=== PATIENT | female | born 1990 | race Caucasian/White ===

== ENCOUNTER 2019-06-28 20:49 | Inpatient (IN) ==
[2019-06-28 21:42] LABS: Appearance Urine Clear (Clear); Bacteria Urine Automated 2+ (Negative); Bilirubin Urine Negative (Negative); Blood Urine Trace (Negative); Color Urine Yellow; Epithelial Cell Urine Auto >30 /lpf (0-5); Glucose Urine UA Negative (Negative); Ketones Urine Trace (Negative); Leukocyte Esterase Urine Negative (Negative); Nitrite Urine Negative (Negative); Protein Urine Negative (Negative); RBC Urine Automated 0-4 /hpf (0-4); Specific Gravity Urine 1.023 (1.000-1.030); Urobilinogen Urine Negative (Negative); pH Urine 5.5 (4.5-7.5)
[2019-06-28 22:01] LABS: Amphetamines+Metham, Urine Neg (Neg); Barbiturates, Urine Neg (Neg); Benzodiazepine, Urine Neg (Neg); Cocaine, Urine Neg (Neg); MDMA (Ecstacy), Urine Neg (Neg); Methadone, Urine Neg (Neg); Opiate, Urine Neg (Neg); Phencyclidine, Urine Neg (Neg)
[2019-06-28 22:14] LABS: Basophils # (auto) 0.05 K/uL (0-0.2); Basophils % (auto) 0.8 %; Eosinophils # (auto) 0.13 K/uL (0-0.5); Immature Granulocytes # (auto) 0.01 K/uL (0.00-0.02); Immature Granulocytes % (auto) 0.2 %; Lymphocytes # (auto) 1.59 K/uL (1.2-3.4); Lymphocytes % (auto) 24.9 %; Mean Corpuscular Hemoglobin 30.7 pg (25-34); Mean Corpuscular Hgb Conc 33.3 g/dL (32-36); Mean Platelet Volume 10.8 fL (7.4-10.4); Monocytes # (auto) 0.49 K/uL (0.11-0.59); Monocytes % (auto) 7.7 %; Neutrophils # (auto) 4.12 K/uL (1.4-6.5); Neutrophils % (auto) 64.4 %; Platelet Count 257 K/uL (130-400); RDW Coefficient of Variation 13.2 % (11.5-14.5); RDW Standard Deviation 43.7 fL (36.4-46.3); Red Blood Count 4.24 M/uL (4.2-5.4); White Blood Count 6.39 K/uL (4.8-10.8)
[2019-06-28 22:44] LABS: Albumin Level 3.3 gm/dl (3.4-5.0); BUN Creatinine Ratio 11.1 (10-20); Calcium 8.3 mg/dl (8.5-10.1); Creatinine Clr Calc Pharmacy 102.8 ml/min; Est GFR (African American) 97.5; Est GFR (Non-African American) 84.1; Potassium 3.8 mmol/L (3.5-5.1)
[2019-06-28 22:46] LABS: Acetaminophen < 2 ug/ml (10-30); Salicylate < 1.7 mg/dl (2.8-20)
[2019-06-28 22:55] LABS: Albumin Globulin Ratio 0.9 (0.9-2); Bilirubin,Total 0.2 mg/dl (0.2-1); Globulin 3.7 gm/dl (2.5-4.0); Thyroid Stimulating Hormone 2.13 uIu/ml (0.300-4.500)
--- NOTE | 2019-06-28 23:46 | Emergency Department Note ---
History of Present Illness General Chief complaint: Mental Health Evaluation Stated complaint: NERVOUS BREAKDOWN, MENTAL HEALTH EVAL Source: patient Mode of arrival: ambulatory Limitations: clinical acuity (fragmented speech, thought d/o) History of Present Illness Provider complaint: Mind fragmented, nervous breakdown Onset (ago): day(s) 7 This patient is a 28-year-old female who presents the emergency department with complaints of a nervous breakdown. The patient states her mind is fragmented and she is not "living in reality." Patient states that she has a history of mental health issues and has had at least 3 inpatient evaluations between [facility] and [place]. Patient does have a psychiatrist that she thinks is "a joke." Patient states she is currently taking Paxil and Ativan but is not able to describe her compliance. 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 Patient denies any significant substance use. She states she was "driving through" and stopped at her aunt and uncle's house in our area. They brought her to the emergency department due to her complaints. Patient denies any clear suicidality but states she is "getting there." She denies any recent illness, fever, cough, chest pain or shortness of breath. Home Medications Home Medications Medication Instructions Recorded Confirmed Type lorazepam [Ativan] 1 mg PO TID PRN 06/28/19 06/28/19 History paroxetine HCl [Paxil] 20 mg PO DAILY 06/28/19 06/28/19 History Allergies Allergy/AdvReac Type Severity Reaction Status Date / Time amoxicillin [From Augmentin] AdvReac Nausea Verified 06/28/19 21:17 clavulanic acid AdvReac Nausea Verified 06/28/19 21:17 [From Augmentin] sumatriptan [From Imitrex] AdvReac Agitated Verified 06/28/19 21:17 Past Med/Surg History Medical History Mental health disorder Social History Preferred Language: Malay Feels Safe at Home: Yes Smoking Status: Current every day smoker Tobacco Type: cigarettes ; Review of Systems See HPI for pertinent positives & negatives. and A total of 10 systems reviewed and were otherwise negative Physical Exam Vital Signs Vital Signs - 24 hr 06/28/19 20:51 06/28/19 23:36 Temperature 36.9 C Temperature Source Oral Pulse Rate 86 Pulse Rate [Left Finger] 60 Pulse Rhythm [Left Finger] Regular Pulse Strength [Left Finger] Normal Respiratory Rate 18 16 Respiratory Effort / Characteristics Non-Labored Non-Labored Respiratory Depth Normal Normal Respiratory Pattern Regular Blood Pressure 158/97 H Blood Pressure [Left Arm] 112/73 Blood Pressure Mean 117 Blood Pressure Mean [Left Arm] 86 Blood Pressure Position [Left Arm] Sitting Pulse Oximetry 100 100 Oxygen Delivery Method Room Air Room Air Sepsis Recent Fever Within 48 Hours No Sepsis Action Taken by Nursing No Action Required Vital signs reviewed. General: Well-appearing 28 yo female, in no significant distress. Anxious and periodically tearful HEENT: No scleral icterus, PERRLA, neck supple. Atraumatic. Cardiovascular: Regular rate and rhythm, no extra sounds. Pulmonary: Clear to auscultation bilaterally, normal work of breathing. Abdomen: Soft, nontender, nondistended, positive bowel sounds. Musculoskeletal: Atraumatic, no peripheral edema. Neurologic: Patient awake alert and oriented x 3 Psych: Questionable suicidality, negative homicidal thoughts. Difficulty completing a sentence Skin: Warm, dry, no rash Medical Decision Making Differential Diagnosis Differential diagnosis: Etiologies such as psychiatric disorder, infection, hypoglycemia, electrolyte abnormalities, cardiac sources, intracerebral event, toxicological process, neurologic disorder, as well as others were entertained. Home Medications Current Medication List: was personally reviewed by me Laboratory Data Attestation: I reviewed the patient's lab results. Result diagrams: 06/28/19 21:54 06/28/19 21:54 Lab Results 06/28/19 06/28/19 06/28/19 Range/Units 21:05 21:05 21:05 WBC (4.8-10.8) K/uL RBC (4.2-5.4) M/uL Hgb (12.0-16.0) g/dL Hct (37-47) % MCV (80-100) fL MCH (25-34) pg MCHC (32-36) g/dL RDW Std Deviation (36.4-46.3) fL RDW Coeff of Shawn (11.5-14.5) % Plt Count (130-400) K/uL MPV (7.4-10.4) fL Immature Gran % (Auto) % Neut % (Auto) % Lymph % (Auto) % [place] % (Auto) % Eos % (Auto) % Baso % (Auto) % Immature Gran # (Auto) (0.00-0.02) K/uL Neut # (Auto) (1.4-6.5) K/uL Lymph # (Auto) (1.2-3.4) K/uL [place] # (Auto) (0.11-0.59) K/uL Eos # (Auto) (0-0.5) K/uL Baso # (Auto) (0-0.2) K/uL Sodium (136-145) mmol/L Potassium (3.5-5.1) mmol/L Chloride (98-107) mmol/L Carbon Dioxide (21-32) mmol/L Anion Gap (3-11) BUN (7-18) mg/dl Creatinine (0.6-1.2) mg/dl Est Cr Clr Drug Dosing ml/min Est GFR ( Amer) Est GFR (Non-Af Amer) BUN/Creatinine Ratio (10-20) Glucose (70-99) mg/dl Calcium (8.5-10.1) mg/dl Total Bilirubin (0.2-1) mg/dl AST (15-37) U/L ALT (12-78) U/L Alkaline Phosphatase (45-117) U/L Total Protein (6.4-8.2) gm/dl Albumin (3.4-5.0) gm/dl Globulin (2.5-4.0) gm/dl Albumin/Globulin Ratio (0.9-2) TSH (0.300-4.500) uIu/ml Urine Color Yellow Urine Appearance Clear (Clear) Urine pH 5.5 (4.5-7.5) Ur Specific [place] 1.023 (1.000-1.030) Urine Protein Negative (Negative) Urine Glucose (UA) Negative (Negative) Urine Ketones Trace H (Negative) Urine Blood Trace H (Negative) Urine Nitrite Negative (Negative) Urine Bilirubin Negative (Negative) Urine Urobilinogen Negative (Negative) Ur Leukocyte Esterase Negative (Negative) Urine WBC (Auto) 10-30 H (0-5) /hpf Urine RBC (Auto) 0-4 (0-4) /hpf U Hyaline Cast (Auto) 5-10 H (0-5) /lpf U Epithel Cells (Auto) >30 H (0-5) /lpf Urine Bacteria (Auto) 2+ H (Negative) POC Ur Test NEG (NEG) Salicylates (2.8-20) mg/dl Urine Opiates Screen Neg (Neg) Ur Methadone, Qual Neg (Neg) Acetaminophen (10-30) ug/ml Urine Barbiturates Neg (Neg) Ur Phencyclidine (PCP) Neg (Neg) U Amphetamin/Meth Scrn Neg (Neg) MDMA (Ecstasy) Screen Neg (Neg) U Benzodiazepines Scrn Neg (Neg) Ur Cocaine Metabolite Neg (Neg) U Marijuana (THC) Screen Neg (Neg) Ethyl Alcohol mg/dL (0-3) mg/dl 06/28/19 06/28/19 06/28/19 Range/Units 21:54 21:54 21:54 WBC 6.39 (4.8-10.8) K/uL RBC 4.24 (4.2-5.4) M/uL Hgb 13.0 (12.0-16.0) g/dL Hct 39.0 (37-47) % MCV 92.0 (80-100) fL MCH 30.7 (25-34) pg MCHC 33.3 (32-36) g/dL RDW Std Deviation 43.7 (36.4-46.3) fL RDW Coeff of Shawn 13.2 (11.5-14.5) % Plt Count 257 (130-400) K/uL MPV 10.8 H (7.4-10.4) fL Immature Gran % (Auto) 0.2 % Neut % (Auto) 64.4 % Lymph % (Auto) 24.9 % [place] % (Auto) 7.7 % Eos % (Auto) 2.0 % Baso % (Auto) 0.8 % Immature Gran # (Auto) 0.01 (0.00-0.02) K/uL Neut # (Auto) 4.12 (1.4-6.5) K/uL Lymph # (Auto) 1.59 (1.2-3.4) K/uL [place] # (Auto) 0.49 (0.11-0.59) K/uL Eos # (Auto) 0.13 (0-0.5) K/uL Baso # (Auto) 0.05 (0-0.2) K/uL Sodium 142 (136-145) mmol/L Potassium 3.8 (3.5-5.1) mmol/L Chloride 111 H (98-107) mmol/L Carbon Dioxide 28 (21-32) mmol/L Anion Gap 4.0 (3-11) BUN 10 (7-18) mg/dl Creatinine 0.92 (0.6-1.2) mg/dl Est Cr Clr Drug Dosing 102.8 ml/min Est GFR ( Amer) 97.5 Est GFR (Non-Af Amer) 84.1 BUN/Creatinine Ratio 11.1 (10-20) Glucose 87 (70-99) mg/dl Calcium 8.3 L (8.5-10.1) mg/dl Total Bilirubin 0.2 (0.2-1) mg/dl AST 10 L (15-37) U/L ALT 14 (12-78) U/L Alkaline Phosphatase 68 (45-117) U/L Total Protein 7.0 (6.4-8.2) gm/dl Albumin 3.3 L (3.4-5.0) gm/dl Globulin 3.7 (2.5-4.0) gm/dl Albumin/Globulin Ratio 0.9 (0.9-2) TSH 2.130 (0.300-4.500) uIu/ml Urine Color Urine Appearance (Clear) Urine pH (4.5-7.5) Ur Specific [place] (1.000-1.030) Urine Protein (Negative) Urine Glucose (UA) (Negative) Urine Ketones (Negative) Urine Blood (Negative) Urine Nitrite (Negative) Urine Bilirubin (Negative) Urine Urobilinogen (Negative) Ur Leukocyte Esterase (Negative) Urine WBC (Auto) (0-5) /hpf Urine RBC (Auto) (0-4) /hpf U Hyaline Cast (Auto) (0-5) /lpf U Epithel Cells (Auto) (0-5) /lpf Urine Bacteria (Auto) (Negative) POC Ur Test (NEG) Salicylates < 1.7 L (2.8-20) mg/dl Urine Opiates Screen (Neg) Ur Methadone, Qual (Neg) Acetaminophen < 2 L (10-30) ug/ml Urine Barbiturates (Neg) Ur Phencyclidine (PCP) (Neg) U Amphetamin/Meth Scrn (Neg) MDMA (Ecstasy) Screen (Neg) U Benzodiazepines Scrn (Neg) Ur Cocaine Metabolite (Neg) U Marijuana (THC) Screen (Neg) Ethyl Alcohol mg/dL (0-3) mg/dl 06/28/19 Range/Units 21:54 WBC (4.8-10.8) K/uL RBC (4.2-5.4) M/uL Hgb (12.0-16.0) g/dL Hct (37-47) % MCV (80-100) fL MCH (25-34) pg MCHC (32-36) g/dL RDW Std Deviation (36.4-46.3) fL RDW Coeff of Shawn (11.5-14.5) % Plt Count (130-400) K/uL MPV (7.4-10.4) fL Immature Gran % (Auto) % Neut % (Auto) % Lymph % (Auto) % [place] % (Auto) % Eos % (Auto) % Baso % (Auto) % Immature Gran # (Auto) (0.00-0.02) K/uL Neut # (Auto) (1.4-6.5) K/uL Lymph # (Auto) (1.2-3.4) K/uL [place] # (Auto) (0.11-0.59) K/uL Eos # (Auto) (0-0.5) K/uL Baso # (Auto) (0-0.2) K/uL Sodium (136-145) mmol/L Potassium (3.5-5.1) mmol/L Chloride (98-107) mmol/L Carbon Dioxide (21-32) mmol/L Anion Gap (3-11) BUN (7-18) mg/dl Creatinine (0.6-1.2) mg/dl Est Cr Clr Drug Dosing ml/min Est GFR ( Amer) Est GFR (Non-Af Amer) BUN/Creatinine Ratio (10-20) Glucose (70-99) mg/dl Calcium (8.5-10.1) mg/dl Total Bilirubin (0.2-1) mg/dl AST (15-37) U/L ALT (12-78) U/L Alkaline Phosphatase (45-117) U/L Total Protein (6.4-8.2) gm/dl Albumin (3.4-5.0) gm/dl Globulin (2.5-4.0) gm/dl Albumin/Globulin Ratio (0.9-2) TSH (0.300-4.500) uIu/ml Urine Color Urine Appearance (Clear) Urine pH (4.5-7.5) Ur Specific [place] (1.000-1.030) Urine Protein (Negative) Urine Glucose (UA) (Negative) Urine Ketones (Negative) Urine Blood (Negative) Urine Nitrite (Negative) Urine Bilirubin (Negative) Urine Urobilinogen (Negative) Ur Leukocyte Esterase (Negative) Urine WBC (Auto) (0-5) /hpf Urine RBC (Auto) (0-4) /hpf U Hyaline Cast (Auto) (0-5) /lpf U Epithel Cells (Auto) (0-5) /lpf Urine Bacteria (Auto) (Negative) POC Ur Test (NEG) Salicylates (2.8-20) mg/dl Urine Opiates Screen (Neg) Ur Methadone, Qual (Neg) Acetaminophen (10-30) ug/ml Urine Barbiturates (Neg) Ur Phencyclidine (PCP) (Neg) U Amphetamin/Meth Scrn (Neg) MDMA (Ecstasy) Screen (Neg) U Benzodiazepines Scrn (Neg) Ur Cocaine Metabolite (Neg) U Marijuana (THC) Screen (Neg) Ethyl Alcohol mg/dL < 3.0 (0-3) mg/dl Blood Pressure Blood Pressure Findings: Normal blood pressure Blood Pressure Disposition: did not require urgent referral MDM Narrative This patient was evaluated and appeared to be in no significant distress. Patient was evaluated and appeared to be in no significant distress. Patient was medically cleared and evaluated by the mental health wrapper caser. Patient admitted to suicidal thoughts with a plan to the wrapper caser. She continues with her difficulty completing a sentence and having fragmented thinking. The patient was referred to [facility] for inpatient mental health treatment. Patient has been accepted on a voluntary basis. Impression & Plan Mental health disorder, Suicidal ideation Discharge Plan Visit Data Chief Complaint: Mental Health Evaluation Stated Complaint: NERVOUS BREAKDOWN, MENTAL HEALTH EVAL ED Provider: Shey Plasencia Discharge Problem: Mental health disorder, Suicidal ideation Forms Stand Alone Forms: My [facility], Suicide Prevention Resources Prescriptions Prescriptions: No Action paroxetine HCl [Paxil] 20 mg Tablet 20 mg PO DAILY RF: 0 lorazepam [Ativan] 1 mg Tablet 1 mg PO TID PRN (Reason: Anxiety) RF: 0
[2019-06-29] MEDS ORDERED: ALUMINUM/MAGNESIUM SUSP 30 ML UDC PO PRN (00:53)
[2019-06-29] MEDS ORDERED: BISMUTH SUBSALICYLATE PER ML OMNICELL CHARGE PO PRN (00:53)
[2019-06-29] MEDS ORDERED: MAGNESIUM HYDROXIDE SUSP 30 ML UDC PO PRN (00:53)
[2019-06-29] MEDS ORDERED: ACETAMINOPHEN 325 MG TAB PO PRN (00:53)
[2019-06-29] MEDS ORDERED: SODIUM CHLORIDE 0.65% NA SOLN 45 ML (OCEAN) PRN (00:53)
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
[2019-06-29] MEDS ORDERED: NICOTINE POLACRILEX 2 MG GUM MT PRN (12:25)
[2019-06-29] MEDS ORDERED: PARoxetine HCL 20 MG TAB PO SCH (12:30)
[2019-06-29] MEDS: LORazepam 1 MG TAB PO PRN ×2 (13:07→19:32)
[2019-06-29] MEDS: PARoxetine HCL 10 MG TAB PO SCH (14:02)
[2019-06-29] MEDS: NICOTINE 21 MG/24 HR TDSY TD SCH (14:02)
[2019-06-30] MEDS: NICOTINE 21 MG/24 HR TDSY TD SCH (09:07)
[2019-06-30] MEDS: PARoxetine HCL 10 MG TAB PO SCH (09:11)
[2019-06-30] MEDS: LORazepam 1 MG TAB PO PRN ×2 (09:16→20:07)
--- NOTE | 2019-06-30 12:34 | Psychiatric Progress Note ---
Date of Service June 30, 2019 Impression / Recommendations Impression 28-year-old single female with a history of depression and anxiety who presented with her aunt and uncle requesting inpatient treatment for worsening symptoms and suicidal ideation with thoughts to overdose or use a gun to end her life. She agreed to voluntary treatment, but states that shortly afterwards, she received a phone call informing her that her boyfriend in [place] of a heart attack. Assessment has been challenging due to limited engagement, vague and evasive answers, and her expressed wish for a rapid discharge, fearing that she will miss any potential services (although indicates none are scheduled yet). Collateral information from family would be helpful, as there are some inconsistencies in her reports, but she would not allow us to talk to her and who brought her here. She did agree to a family meeting with her mother which is scheduled for today. We also been able to get some information from her previous therapist, which indicates some concerning behaviors with poor interpersonal boundaries, borderline traits, and possibly a primary thought disorder. I have again stressed our focus on addressing safety issues first before discharging her, and paroxetine was increased to 40 mg daily on admission to target depressive and anxiety symptoms. We are also exploring options for therapy, but her previous therapist is unwilling to work with her again. Inpatient treatment is medically necessary due to the severity of symptoms and risk for suicide if discharged. (1) Depression: 06/28 -patient reports worsening mood for the past couple of weeks in the context of working long hours and interpersonal stressors. She is recently been switched back to paroxetine, which was previously effective, and agreed to titrate the dose to 30 mg daily. -Get collateral information from family, and schedule a discharge planning meeting with her mother and/or aunt. -Clarify access to guns with family. -Coordinate care with [facility], ensure psychiatric follow-up, and recommend individual psychotherapy. -Encourage patient to attend to participate in groups and therapy, work on healthy coping skills and discharge safety plan. 06/29 -continue paroxetine 30 mg daily. -Obtain collateral information from family and previous therapist. -Patient denies access to guns. It would be helpful to involve her family and discharge and safety planning. -Patient is submitted a 72-hour notice requesting to withdrawal from treatment, but cannot safely discharge her as she remains suicidal and none of her risk factors have been mitigated -Broad differential, including depression and anxiety, schizoaffective disorder, borderline personality disorder, PTSD, substance abuse. Patient states she has been having debilitating symptoms for 4 years, we do not have access to any of her previous records, hospitalizations, or medical work-ups. Advised her that there will not be a quick fix in terms of a medication that will fix her symptoms immediately, and that she should continue to work with an outpatient psychiatrist and therapist for the best long-term results. (2) Anxiety: 06/28 -increased paroxetine as above; continue lorazepam as needed. Risk Factors Assessment Male: No : Yes Do You Have Access To A Gun?: No Health Problems: No Mental Health Diagnoses: Yes Substance Use Disorders: No Previous Attempt: No Previous Psychiatric Hospitalization: Yes Smoker: Yes Protective Factors Assessment : No Responsible for Young Children: No Employed: Yes ([employer]) Stable Relationships: No Supportive Family: Yes Good Rapport with Provider: No Interval History Identifying Information BARRY CALDERA is a 28-year-old F who currently lives in [place] with her stepfather, has a history of depression and anxiety, and was admitted on 06/28/19 23:53 on a 201 voluntary commitment for suicidal ideation with multiple plans (overdose and shooting herself). Chief Complaint " The same". Review of Systems Sleep Information Total Hours of Sleep: 6.75 Sleep Comments: admitted at 0041. Vistaril given due to anxiety and insomnia. Meal Information Percent Meal Consumed - Breakfast: 100 Percent Meal Consumed - Lunch: 60 Percent Meal Consumed - Dinner: 25 Subjective Subjective Patient was seen & assessed and interval progress reviewed with treatment team. Staff reports she has refused all groups, spends most of her time in her room, and has been frequently tearful and distraught. She submitted a 72-hour notice requesting to withdrawal from treatment, stating she wanted to ensure she was out of the hospital in time to go to her boyfriend's in [place], and requested and received multiple doses of Ativan for anxiety. 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 She denies any acute stressors at the time. At that time, she moved back in with her mother and stepfather, and has never been able to move back out and live independently. She also reports problems in her interpersonal relationships and friendships for the past 4 years, which she is vague about. She states that 4 years ago, she felt "like reality split, I feel split, like 2 people." She says she has been told she has borderline personality disorder more complex PTSD by different therapists. She describes chronic cloudy thoughts, stating she cannot focus, and has a constant sense of derealization. "My head is making me feel bad. I'm not thinking it, it's like the thoughts are just there. It's making my whole body feel bad." She says "reality was ripped from me, I have not been grounded in 3 to 4 years." She describes feeling like there is a "pain in my head that goes from the front to the back," and that she is "collapsing in on myself even when I am standing up." She is aware that there are are no actual physical abnormalities, and wants to know if there is a medication that can fix all of this. Reflected that she submitted a 72-hour notice requesting to leave treatment, and that given the length of time that her symptoms have been going on, this is going to take some time to address. She reports having a brain MRI sometime in the past year, which was normal. She endorses hopelessness and ongoing suicidal thoughts. She denies a history of suicide attempts and denies access to guns. She had previously reported that her mother told her she would come and get her and take her to [place], but when her mother talked to the psychosocial rehabilitation counselor she stated that she cannot leave [place]. She states that she would like to go back to see her previous therapist in [place], but that this individual terminated care and she is unsure why. Social work contacted her previous therapist who reported that the patient had poor boundaries, fabricated information, and that diagnosis was unclear. She initially started treatment for symptoms of anxiety, but also noted borderline traits, and at times was so disorganized that she questioned a primary thought disorder such as schizoaffective. Physical Exam Psychiatric Orientation: alert and cooperative Apperance: appropriately dressed, + disheveled and appeared stated age Mildly disheveled and unkempt. Lying in bed in no acute distress Eye Contact: + fair eye contact Motor Behavior: no abnormal motor movements Long pauses at times prior to answering certain questions, closing her eyes and appears to be thinking before responding. Affect: + depressed affect, + tearful affect and mood congruent with affect Mood: + depressed mood and + anxious mood "The same." Thought Process: + thought process not clear or coherent Thought Content: + cognitive distortions, + derealization, + thought insertion, + hopelessness and + loneliness Often gives vague answers, inconsistent reports. Suicidal Thoughts: + reports suicidal thoughts Homicidal Thoughts: denies homicidal thoughts Hallucinations: no auditory hallucinations and no visual hallucinations Cognition: attention grossly intact and language grossly intact; + recent memory not intact and + remote memory not intact Insight: + impaired insight Judgement: + impaired judgement Vital Signs (Past 24 Hours) Last Vital Signs Temp 36.6 C 06/30/19 06:42 Pulse 94 H 06/30/19 06:44 Resp 16 06/30/19 06:42 BP 131/81 06/30/19 06:44 Pulse Ox 99 06/29/19 01:16 Results & Data ([facility]) Current Inpatient Medications Current Inpatient Medications: Current Inpatient Medications Acetaminophen (Tylenol) 650 mg PO Q4H PRN PRN Reason: Headache or Minor Fever Stop: 07/29/19 00:52 Al Hydrox/Mg Hydrox/Simethicone (Maalox) 30 ml PO Q4H PRN PRN Reason: GI Upset Stop: 07/29/19 00:52 Bismuth Subsalicylate (Kaopectate) 15 ml PO PRN PRN PRN Reason: Loose Stool Stop: 07/29/19 00:52 Hydroxyzine HCl (Vistaril) 50 mg PO HSZ PRN PRN Reason: Insomnia Stop: 07/29/19 00:52 Last Admin: 06/29/19 22:13 Dose: 50 mg Documented by: Hydroxyzine HCl (Vistaril) 25 mg PO Q4H PRN PRN Reason: Anxiety Stop: 07/29/19 00:52 Last Admin: 06/29/19 06:20 Dose: 25 mg Documented by: Lorazepam (Ativan) 1 mg PO TID PRN PRN Reason: Anxiety Stop: 07/29/19 12:19 Last Admin: 06/30/19 09:16 Dose: 1 mg Documented by: Magnesium Hydroxide (Milk Of Magnesia) 30 ml PO DAILY PRN PRN Reason: Constipation Stop: 07/29/19 00:52 Miscellaneous (Remove Nicoderm Patch) 1 ea N/A DAILY@[id number] [facility] Stop: 07/30/19 08:58 Last Admin: 06/30/19 09:11 Dose: 1 ea Documented by: Nicotine (Nicoderm Cq) 21 mg TD QAM [facility] Stop: 07/29/19 12:29 Last Admin: 06/30/19 09:07 Dose: 21 mg Documented by: Nicotine Polacrilex (Nicorette 2mg) 1 piece MT PRN PRN PRN Reason: cravings Stop: 07/29/19 12:24 Paroxetine HCl (Paroxetine Hcl) 30 mg PO DAILY [facility] Stop: 07/29/19 12:44 Last Admin: 06/30/19 09:11 Dose: 30 mg Documented by: Sodium Chloride ([place] Nasal) 1 - 2 sprays NA PRN PRN PRN Reason: Nasal Dryness/Congestion Stop: 07/29/19 00:52 Mental Health & Subst Abuse Tx Psychiatrist Name of Psychiatrist: [facility] Date of Appointment with Psychiatrist: 07/08/19 Time of Appointment with Psychiatrist: 2:30 p.m. Psychiatric Appointment Comment: By telephone Therapist Name of Therapist: None current - therapist dc dt feeling not helping her Machine Whitener Name of Machine Whitener: None Post Discharge Appointments Contact Information Discharge Discharge Address: [address] [place] [id number]
[2019-07-01] MEDS: PARoxetine HCL 10 MG TAB PO SCH (08:50)
[2019-07-01] MEDS: LORazepam 1 MG TAB PO PRN ×2 (08:50→20:05)
[2019-07-01] MEDS: NICOTINE 21 MG/24 HR TDSY TD SCH (09:01)
[2019-07-01] MEDS ORDERED: ARIPiprazole 5 MG TAB PO ONE (11:15)
--- NOTE | 2019-07-01 11:23 | Psychiatric Progress Note ---
Date of Service July 01, 2019 Impression / Recommendations Impression 28-year-old single female with a history of depression and anxiety who presented with her aunt and uncle requesting inpatient treatment for worsening symptoms and suicidal ideation with thoughts to overdose or use a gun to end her life. She agreed to voluntary treatment, but states that shortly afterwards, she received a phone call informing her that her boyfriend in [place] of a heart attack/MVA. Assessment has been challenging due to limited engagement, vague and evasive answers, and her expressed wish for a rapid discharge, fearing that she will miss any potential services (although indicates none are scheduled yet). Collateral information was obtained from her previous outpatient therapist, who apparently also struggled with patient's diagnosis for the above reasons as well. 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 While there continue to be inconsistencies in the patient's reports, she is at least beginning to recognize the potential benefit of psychiatric hospitalization and is more willing to engage in programming. Pt did engage in further discussion regarding the psychiatric symptoms she has been struggling with. After this discussion, she is agreeable with trial of aripiprazole to target what patient describes as thought disorganization, derealization and depersonalization. Risks, benefits, and potential side effects were reviewed. Pt was encouraged to participate more fully in group programming, and did express a desire to rescind her 72-hour notice in order to focus on her treatment. She remains intermittently suicidal. Inpatient treatment is medically necessary due to the severity of symptoms and risk for suicide if discharged. (1) Depression: 06/28 -patient reports worsening mood for the past couple of weeks in the context of working long hours and interpersonal stressors. She is recently been switched back to paroxetine, which was previously effective, and agreed to titrate the dose to 30 mg daily. -Get collateral information from family, and schedule a discharge planning meeting with her mother and/or aunt. -Clarify access to guns with family. -Coordinate care with [facility], ensure psychiatric follow-up, and recommend individual psychotherapy. -Encourage patient to attend to participate in groups and therapy, work on healthy coping skills and discharge safety plan. 06/29 -continue paroxetine 30 mg daily. -Obtain collateral information from family and previous therapist. -Patient denies access to guns. It would be helpful to involve her family and discharge and safety planning. -Patient is submitted a 72-hour notice requesting to withdrawal from treatment, but cannot safely discharge her as she remains suicidal and none of her risk factors have been mitigated -Broad differential, including depression and anxiety, schizoaffective disorder, borderline personality disorder, PTSD, substance abuse. Patient states she has been having debilitating symptoms for 4 years, we do not have access to any of her previous records, hospitalizations, or medical work-ups. Advised her that there will not be a quick fix in terms of a medication that will fix her symptoms immediately, and that she should continue to work with an outpatient psychiatrist and therapist for the best long-term results. 06/30 - Pt agreeable with trial of aripiprazole to target ongoing depressed mood in addition to patient's reports of thought disorganization and derealization. Pt to receive 2.5mg today, with plan to titrate to 5mg tomorrow morning if patient tolerates initial dose. Pt states she had been on the medication in the past, but not past 1mg a day according to her reports. - Continue paroxetine 30mg daily - Will order fasting lipid and glucose level in accordance with initiation of an atypical antipsychotic. - Pt tolerated family meeting with mother yesterday afternoon. Both mother and patient agree additional time in the hospital would be beneficial for the patient. Pt did rescind her 72-hour notice today and is agreeable with remaining in treatment until her symptoms and risk factors have been adequately addressed. - Pt continues to report episodes of suicidality, unable to contract for safety if discharged at this time. (2) Anxiety: 06/28 -increased paroxetine as above; continue lorazepam as needed. 06/30 - continue paroxetine 30mg as above; lorazepam 1mg TID prn per home dose - reviewed availability of hydroxyzine for daytime anxiety as well as sleep Risk Factors Assessment Male: No : Yes Do You Have Access To A Gun?: No Health Problems: No Mental Health Diagnoses: Yes Substance Use Disorders: No Previous Attempt: No Previous Psychiatric Hospitalization: Yes Smoker: Yes Protective Factors Assessment : No Responsible for Young Children: No Employed: Yes ([employer]) Stable Relationships: No Supportive Family: Yes Good Rapport with Provider: No Interval History Identifying Information BARRY CALDERA is a 28-year-old F who currently lives in [place] with her stepfather, has a history of depression and anxiety, and was admitted on 06/28/19 23:53 on a 201 voluntary commitment for suicidal ideation with multiple plans (overdose and shooting herself). Pt initially submitted a 72-hour notice related to concern that her hospitalization would interfere with attending her now boyfriend's services - she rescinded her notice on 07/01/2019 after reporting increased motivation to focus on her mental health. Chief Complaint "So, it's so weird. I can't explain it. It's like I can't find my reality and my head hurts. I know I'm not thinking right." Review of Systems Notes Constitutional: reports headache and other unusual sensation in her head "like my head is split" Cardiovascular: denied Respiratory: denied Gastrointestinal: denied Neurological: denied Psychiatric: denies symptoms other than stated above Total of at least 10 systems reviewed, pertinent positives as above and in HPI. Sleep Information Total Hours of Sleep: 6.5 Sleep Comments: . Meal Information Percent Meal Consumed - Breakfast: 100 Percent Meal Consumed - Lunch: 60 Percent Meal Consumed - Dinner: 100 Subjective Subjective Patient was seen & assessed and interval progress reviewed with nursing and social work. Pt had submitted her 72-hour notice, which was set to on 07/02/2019 at 1300. Staff report the patient has been largely isolative, but reports benefit from 1:1 sessions with counselors. Pt did participate in a family meeting via phone yesterday afternoon with her mother. Mother was reported to be supportive, but encouraging longer hospitalization for the patient. Pt was reportedly still suicidal yesterday. Pt was seen today to assess progress since admission. Pt states that she is still having difficulty, as she states "it's so weird. I can't explain it. It's like I can't find my reality and my head hurts. I know I'm not thinking right." Pt continues to report concerns about a "self-sabotaging spree" that led to "me consciously trying to split my personality, to try to not be like my former self. Pt states that 6 years ago she "went on a two year stint of acting and thinking more like a child, I was like a kid. I couldn't think like an adult." Pt continues to have difficulty expressing these thoughts in a clear way and is unable to elaborate more on the topic. Pt remains consistent that this began about 6 years ago, and states the stressor she believes initiated these distorted thoughts was "I slept with the kellie who way my best friend at the time. He wanted something more, but I freaked out, I didn't think I was ready." While patient denies that the event was particularly traumatic, she does states that she felt rejected in that time. Pt was unable to clearly connect how these feelings of rejection related to her reports that her friend was actually pursuing her more deeply. Pt did express a desire to discuss medication options in greater detail, as she is now more motivated in ensuring her hospitalization is productive. After a thorough discussion regarding differential diagnoses, benefit for individual counseling, and medication options -patient is agreeable with a trial of aripiprazole. While she reports trials of risperidone, olanzapine, and aripiprazole in the past, she states that she does not feel the medication were titrated to effective doses. Education was offered on the medication and we discussed that it is likely to target low mood, disorganized/distorted thoughts, and may also offer benefit for anxiety. Pt was agreeable with getting fasting labs tomorrow morning and was eager to begin the medication today. Pt stated many times during our conversation "I still need help", "nothing is better", and "if I leave here, things will just go back to how they were. I'm not any different." Pt does admit to ongoing intermittent SI and is not able at this time to contract for safety outside of the hospital setting. She does request to rescind her 72-hour notice, and this provider offer reassurance that her treatment goals are aligned with our own. Pt denied other needs or concerns at this time. She was encouraged to attempt to attend group programming today, but was also encouraged to ask for 1:1 sessions if desired in addition to the group activities. 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 "Still cannot rule out a personality disorder" 08/24/2018: Focus was directed toward topics of "feeling not herself" and "past relationships." It was discussed that patient was on a 2-week leave from work and awaiting further action from her employer. She expressed concern that she may need inpatient treatment, but denied HI/SI. Pt reported motivation to talk through these topics and was scheduled for an appointment the next day. 09/21/2018: Continued to discuss topics related to interpersonal relationships. Follow-up in 1 week. 09/24/2018: Reportedly began session by stating "that she is fine and didn't need to be here, but then stated that she was a mess nd needed help." Reports feeling "stuck in her head." Ongoing discuss regarding interpersonal relationships. 10/01/2018: Began session by stating "that she feels like herself for the first time in a long time. Feels her medication has been helping a lot. 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 10/09/2018: Reported a fight with her boyfriend after seeing a conversation with another female on his phone. Pt reported feeling "very down" and suicidal - denied plan or means. Reported having 2 job offers. 10/12/2018: Showed up late after a job interview that "went longer than expected." Reported "I feel like a person again, I feel great." Physical Exam Psychiatric Orientation: alert, oriented x 3 and cooperative Apperance: appropriately dressed, appropriately groomed and appeared stated age Eye Contact: good eye contact Motor Behavior: no abnormal motor movements (observed while sitting cross-legged on bed) Speech: normal rate/rhythm/volume of speech Affect: + tearful affect (intermittently), + blunted affect and mood congruent with affect Mood: + depressed mood ("it's my thoughts, not being able to think has gotten me really down") Thought Process: + thought blocking (per patient's reports - "thoughts in my head, but can't get them out") and + perseveration; + thought process not clear or coherent (has difficulty describing various thoughts/sensations she is reporting) Thought Content: + preoccupation (with sensations in her head, and distorted thoughts), + cognitive distortions, + derealization, + hopelessness and + loneliness Suicidal Thoughts: denies suicidal intent (but denies having a plan to deal with thoughts differently in the future); + reports suicidal thoughts (reports ongoing intermittent SI) Homicidal Thoughts: denies homicidal thoughts Hallucinations: no auditory hallucinations and no visual hallucinations Cognition: attention grossly intact and language grossly intact Insight: + impaired insight Judgement: + impaired judgement Vital Signs (Past 24 Hours) Last Vital Signs Temp 36.7 C 07/01/19 06:00 Pulse 86 07/01/19 06:36 Resp 16 07/01/19 06:00 BP 100/66 07/01/19 06:36 Pulse Ox 99 06/29/19 01:16 Results & Data ([facility]) Current Inpatient Medications Current Inpatient Medications: Current Inpatient Medications Acetaminophen (Tylenol) 650 mg PO Q4H PRN PRN Reason: Headache or Minor Fever Stop: 07/29/19 00:52 Al Hydrox/Mg Hydrox/Simethicone (Maalox) 30 ml PO Q4H PRN PRN Reason: GI Upset Stop: 07/29/19 00:52 Aripiprazole (Abilify) 2.5 mg PO ONE ONE Stop: 07/01/19 11:16 Aripiprazole (Abilify) 5 mg PO QAM [facility] Stop: 08/01/19 08:59 Bismuth Subsalicylate (Kaopectate) 15 ml PO PRN PRN PRN Reason: Loose Stool Stop: 07/29/19 00:52 Hydroxyzine HCl (Vistaril) 50 mg PO HSZ PRN PRN Reason: Insomnia Stop: 07/29/19 00:52 Last Admin: 06/29/19 22:13 Dose: 50 mg Documented by: Hydroxyzine HCl (Vistaril) 25 mg PO Q4H PRN PRN Reason: Anxiety Stop: 07/29/19 00:52 Last Admin: 06/29/19 06:20 Dose: 25 mg Documented by: Lorazepam (Ativan) 1 mg PO TID PRN PRN Reason: Anxiety Stop: 07/29/19 12:19 Last Admin: 07/01/19 08:50 Dose: 1 mg Documented by: Magnesium Hydroxide (Milk Of Magnesia) 30 ml PO DAILY PRN PRN Reason: Constipation Stop: 07/29/19 00:52 Miscellaneous (Remove Nicoderm Patch) 1 ea N/A DAILY@[id number] [facility] Stop: 07/30/19 08:58 Last Admin: 07/01/19 09:01 Dose: 1 ea Documented by: Nicotine (Nicoderm Cq) 21 mg TD QAM [facility] Stop: 07/29/19 12:29 Last Admin: 07/01/19 09:01 Dose: 21 mg Documented by: Nicotine Polacrilex (Nicorette 2mg) 1 piece MT PRN PRN PRN Reason: cravings Stop: 07/29/19 12:24 Paroxetine HCl (Paroxetine Hcl) 30 mg PO DAILY [facility] Stop: 07/29/19 12:44 Last Admin: 07/01/19 08:50 Dose: 30 mg Documented by: Sodium Chloride ([place] Nasal) 1 - 2 sprays NA PRN PRN PRN Reason: Nasal Dryness/Congestion Stop: 07/29/19 00:52 Mental Health & Subst Abuse Tx Psychiatrist Name of Psychiatrist: Zoran [facility] Date of Appointment with Psychiatrist: 07/08/19 Time of Appointment with Psychiatrist: 2:30 p.m. Psychiatric Appointment Comment: By telephone Therapist Name of Therapist: Arvin Cuadra Therapist's Date of Therapist Appointment: 07/05/19 Time of Therapist Appointment: 6:00pm Therapy Appointment Comment: 9 [facility], Room #3, [facility] Guest Services Lead Name of Guest Services Lead: None Post Discharge Appointments Contact Information Discharge Discharge Address: [address] [place] [id number]
[2019-07-02 07:48] LABS: Chol HDL Ratio 4; Cholesterol 167 mg/dl (0-200); Glucose Fasting 96 mg/dl (70-99); HDL Cholesterol 46 mg/dl; LDL Cholesterol Calculated 106 mg/dl; Triglycerides 76 mg/dl (0-150); VLDL Cholesterol 15 mg/dl
[2019-07-02] MEDS: LORazepam 1 MG TAB PO PRN ×2 (08:59→20:29)
[2019-07-02] MEDS: PARoxetine HCL 10 MG TAB PO SCH (08:59)
[2019-07-02] MEDS: NICOTINE 21 MG/24 HR TDSY TD SCH (08:59)
[2019-07-02] MEDS ORDERED: ARIPiprazole 5 MG TAB PO SCH (09:00)
--- NOTE | 2019-07-02 09:33 | Psychiatric Progress Note ---
Date of Service July 02, 2019 Impression / Recommendations Impression 28-year-old single female with a history of depression and anxiety who presented with her aunt and uncle requesting inpatient treatment for worsening symptoms and suicidal ideation with thoughts to overdose or use a gun to end her life. She agreed to voluntary treatment, but states that shortly afterwards, she received a phone call informing her that her boyfriend in [place] of a heart attack/MVA. Assessment has been challenging due to limited engagement, vague and evasive answers, and her expressed wish for a rapid discharge, fearing that she will miss any potential services (although indicates none are scheduled yet). Collateral information was obtained from her previous outpatient therapist, who apparently also struggled with patient's diagnosis for the above reasons as well. 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 While there continue to be inconsistencies in the patient's reports, she is at least beginning to recognize the potential benefit of psychiatric hospitalization and is more willing to engage in programming. Pt did engage in further discussion regarding the psychiatric symptoms she has been struggling with. After this discussion, she is agreeable with trial of aripiprazole to target what patient describes as thought disorganization, derealization and depersonalization. Risks, benefits, and potential side effects were reviewed. Pt was encouraged to participate more fully in group programming, and did express a desire to rescind her 72-hour notice in order to focus on her treatment. She denies SI on the unit, but remains unable to contract for safety outside of the hospital setting. Inpatient treatment is medically necessary due to the severity of symptoms and risk for suicide if discharged. (1) Depression: 06/28 -patient reports worsening mood for the past couple of weeks in the context of working long hours and interpersonal stressors. She is recently been switched back to paroxetine, which was previously effective, and agreed to titrate the dose to 30 mg daily. -Get collateral information from family, and schedule a discharge planning meeting with her mother and/or aunt. -Clarify access to guns with family. -Coordinate care with [facility], ensure psychiatric follow-up, and recommend individual psychotherapy. -Encourage patient to attend to participate in groups and therapy, work on healthy coping skills and discharge safety plan. 06/29 -continue paroxetine 30 mg daily. -Obtain collateral information from family and previous therapist. -Patient denies access to guns. It would be helpful to involve her family and discharge and safety planning. -Patient is submitted a 72-hour notice requesting to withdrawal from treatment, but cannot safely discharge her as she remains suicidal and none of her risk factors have been mitigated -Broad differential, including depression and anxiety, schizoaffective disorder, borderline personality disorder, PTSD, substance abuse. Patient states she has been having debilitating symptoms for 4 years, we do not have access to any of her previous records, hospitalizations, or medical work-ups. Advised her that there will not be a quick fix in terms of a medication that will fix her symptoms immediately, and that she should continue to work with an outpatient psychiatrist and therapist for the best long-term results. 06/30 - Pt agreeable with trial of aripiprazole to target ongoing depressed mood in addition to patient's reports of thought disorganization and derealization. Pt to receive 2.5mg today, with plan to titrate to 5mg tomorrow morning if patient tolerates initial dose. Pt states she had been on the medication in the past, but not past 1mg a day according to her reports. - Continue paroxetine 30mg daily - Will order fasting lipid and glucose level in accordance with initiation of an atypical antipsychotic. - Pt tolerated family meeting with mother yesterday afternoon. Both mother and patient agree additional time in the hospital would be beneficial for the patient. Pt did rescind her 72-hour notice today and is agreeable with remaining in treatment until her symptoms and risk factors have been adequately addressed. - Pt continues to report episodes of suicidality, unable to contract for safety if discharged at this time. 07/01 - Continue 30mg of paroxetine. Pt received 5mg of aripiprazole this morning - she is agreeable with monitoring thoughts and mood throughout the day, but is not convinced she wishes to continue the medication. Pharmacoeducation was offered to the patient and topics of therapeutic dosing, time to efficacy, and allowing for a decent trial of the medication prior to making adjustments. We did, however, also review alternatives to the aripiprazole. Specifically, paliperidone was reviewed as a potential option, though patient was encouraged to strongly consider a decent trial of aripiprazole. - We did come to a compromise that aripiprazole dose for tomorrow morning would be held - pending further conversation regarding decision to continue aripiprazole versus trail another agent. - Fasting labs reviewed: fasting glucose - 96; triglycerides - 76; total cholesterol - 167; LDL - 106; HDL - 46 - Pt denies active SI on the unit, but is unable to contract for safety outside of the hospital setting at this time. (2) Anxiety: 06/28 -increased paroxetine as above; continue lorazepam as needed. 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 Pt initially submitted a 72-hour notice related to concern that her hospitalization would interfere with attending her now boyfriend's services - she rescinded her notice on 07/01/2019 after reporting increased motivation to focus on her mental health. Chief Complaint "Um, yeah, I have some indigestion. I think it was just something I ate." Review of Systems Notes Constitutional: denied Cardiovascular: denied Respiratory: denied Gastrointestinal: reports indigestion Neurological: denied Psychiatric: denies symptoms other than stated above Total of at least 10 systems reviewed, pertinent positives as above and in HPI. Sleep Information Total Hours of Sleep: 6.5 Sleep Comments: pt given vistaril per rn. pt on q-15 minute checks Meal Information Percent Meal Consumed - Breakfast: 100 Percent Meal Consumed - Lunch: 0 Percent Meal Consumed - Dinner: 0 Nutrition Comment: pt. resting Subjective Subjective Patient was seen & assessed and interval progress reviewed with treatment team. Staff report the patient was more active in group programming last evening, but was isolative for most of the morning and afternoon. It is reported that the patient was observed to be tearful. Pt was seen today to assess progress since admission. She reports some indigestion this morning, believing it to be related to the food she at for breakfast. Otherwise, she denies noticeable side effects to the initiation of aripiprazole. Pt does inquire "how long do you think it will take before I see a difference." We discussed topics including therapeutic dosing ranges and that the medications may take several days to weeks before there may be an obvious effect. Pt is now questioning what "the next step would be if this didn't work." We discussed that, while this provider is still recommending a decent trial of aripiprazole, other atypical antipsychotics are able to be utilized if necessary. In particular, paliperidone was reviewed as a possible option depending on what additional history is available regarding her symptoms. It was discussed that both aripiprazole and paliperidone have URBANO forms. Pt does state "I think I just want to switch." Pt was encouraged to remain consistent with the aripiprazole for a full trial, and did agree to monitor mood and thoughts throughout the day today prior to making a decision. Pt was encouraged to discuss daily with providers as these medications are adjusted. Pt denies SI at this time, but remains concerned that if she were to be discharged these thoughts would rapidly recur. Pt denied other needs from staff at this time. She was encouraged to attend group programming more consistently and utilize 1:1 sessions as needed in addition to the groups. Physical Exam Psychiatric Orientation: alert Apperance: appropriately dressed (still in pajamas ), + disheveled (still laying in bed) and appeared stated age Eye Contact: good eye contact Motor Behavior: no abnormal motor movements (observed while laying in bed) Speech: normal rate/rhythm/volume of speech Affect: + anxious affect Mood: + depressed mood and + anxious mood Thought Process: goal directed thought process and thought association intact Thought Content: + preoccupation (with disorganized thoughts and medication choices), + cognitive distortions, + hopelessness and + loneliness Suicidal Thoughts: denies suicidal thoughts (but remains concerned about recurrence if she is discharged) and denies suicidal intent remains unable to contract for safety outside of the hospital setting Homicidal Thoughts: denies homicidal thoughts Hallucinations: no auditory hallucinations and no visual hallucinations Cognition: attention grossly intact and language grossly intact Estimated Intelligence: consistent with education level Insight: + impaired insight Judgement: + impaired judgement Vital Signs (Past 24 Hours) Last Vital Signs Temp 36.8 C 07/02/19 06:52 Pulse 82 07/02/19 06:52 Resp 18 07/02/19 06:52 BP 113/75 07/02/19 06:52 Pulse Ox 99 06/29/19 01:16 Results & Data ([facility]) Laboratory Results Laboratory Results - last 24 hr 07/02/19 07:06 Fasting Glucose 96 Triglycerides 76 Cholesterol 167 LDL Cholesterol, Calc 106 VLDL Cholesterol, Calc 15 HDL Cholesterol 46 Cholesterol/HDL Ratio 4 Current Inpatient Medications Current Inpatient Medications: Current Inpatient Medications Acetaminophen (Tylenol) 650 mg PO Q4H PRN PRN Reason: Headache or Minor Fever Stop: 07/29/19 00:52 Al Hydrox/Mg Hydrox/Simethicone (Maalox) 30 ml PO Q4H PRN PRN Reason: GI Upset Stop: 07/29/19 00:52 Aripiprazole (Abilify) 5 mg PO QAM [facility] Stop: 08/01/19 08:59 Last Admin: 07/02/19 08:59 Dose: 5 mg Documented by: Bismuth Subsalicylate (Kaopectate) 15 ml PO PRN PRN PRN Reason: Loose Stool Stop: 07/29/19 00:52 Hydroxyzine HCl (Vistaril) 50 mg PO HSZ PRN PRN Reason: Insomnia Stop: 07/29/19 00:52 Last Admin: 07/01/19 21:15 Dose: 50 mg Documented by: Hydroxyzine HCl (Vistaril) 25 mg PO Q4H PRN PRN Reason: Anxiety Stop: 07/29/19 00:52 Last Admin: 06/29/19 06:20 Dose: 25 mg Documented by: Lorazepam (Ativan) 1 mg PO TID PRN PRN Reason: Anxiety Stop: 07/29/19 12:19 Last Admin: 07/02/19 08:59 Dose: 1 mg Documented by: Magnesium Hydroxide (Milk Of Magnesia) 30 ml PO DAILY PRN PRN Reason: Constipation Stop: 07/29/19 00:52 Miscellaneous (Remove Nicoderm Patch) 1 ea N/A DAILY@0859 [facility] Stop: 07/30/19 08:58 Last Admin: 07/02/19 08:58 Dose: 1 ea Documented by: Nicotine (Nicoderm Cq) 21 mg TD QAM [facility] Stop: 07/29/19 12:29 Last Admin: 07/02/19 08:59 Dose: 21 mg Documented by: Nicotine Polacrilex (Nicorette 2mg) 1 piece MT PRN PRN PRN Reason: cravings Stop: 07/29/19 12:24 Paroxetine HCl (Paroxetine Hcl) 30 mg PO DAILY [facility] Stop: 07/29/19 12:44 Last Admin: 07/02/19 08:59 Dose: 30 mg Documented by: Sodium Chloride ([place] Nasal) 1 - 2 sprays NA PRN PRN PRN Reason: Nasal Dryness/Congestion Stop: 07/29/19 00:52 Mental Health & Subst Abuse Tx Psychiatrist Name of Psychiatrist: Zoran Navarro - Dr. Lake Psychiatrist's Date of Appointment with Psychiatrist: 07/08/19 Time of Appointment with Psychiatrist: 2:30 p.m. Psychiatric Appointment Comment: By telephone Therapist Name of Therapist: Arvin Cuadra Therapist's Date of Therapist Appointment: 07/05/19 Time of Therapist Appointment: 6:00pm Therapy Appointment Comment: 9 [facility] [place], Room #3, [facility] Base Cloth Inspector Name of Base Cloth Inspector: None Post Discharge Appointments Contact Information Discharge Discharge Address: [address] [place] [address]
[2019-07-02] MEDS ORDERED: CALCIUM CARBONATE 500 MG CHEWABLE TAB PO PRN (09:59)
[2019-07-03] MEDS: NICOTINE 21 MG/24 HR TDSY TD SCH (08:48)
[2019-07-03] MEDS: PARoxetine HCL 10 MG TAB PO SCH (08:48)
--- NOTE | 2019-07-03 14:01 | Psychiatric Progress Note ---
Date of Service July 03, 2019 Impression / Recommendations Impression 28-year-old single female with a history of depression and anxiety who presented with her aunt and uncle requesting inpatient treatment for worsening symptoms and suicidal ideation with thoughts to overdose or use a gun to end her life. She agreed to voluntary treatment, but states that shortly afterwards, she received a phone call informing her that her boyfriend in [place] of a heart attack/MVA. Inpatient treatment is medically necessary due to the severity of symptoms and risk for suicide if discharged. (1) Depression: 06/28 -patient reports worsening mood for the past couple of weeks in the context of working long hours and interpersonal stressors. She is recently been switched back to paroxetine, which was previously effective, and agreed to titrate the dose to 30 mg daily. -Get collateral information from family, and schedule a discharge planning meeting with her mother and/or aunt. -Clarify access to guns with family. -Coordinate care with [facility], ensure psychiatric follow-up, and recommend individual psychotherapy. -Encourage patient to attend to participate in groups and therapy, work on healthy coping skills and discharge safety plan. 06/29 -continue paroxetine 30 mg daily. -Obtain collateral information from family and previous therapist. -Patient denies access to guns. It would be helpful to involve her family and discharge and safety planning. -Patient is submitted a 72-hour notice requesting to withdrawal from treatment, but cannot safely discharge her as she remains suicidal and none of her risk factors have been mitigated -Broad differential, including depression and anxiety, schizoaffective disorder, borderline personality disorder, PTSD, substance abuse. Patient states she has been having debilitating symptoms for 4 years, we do not have access to any of her previous records, hospitalizations, or medical work-ups. Advised her that there will not be a quick fix in terms of a medication that will fix her symptoms immediately, and that she should continue to work with an outpatient psychiatrist and therapist for the best long-term results. 06/30 - Pt agreeable with trial of aripiprazole to target ongoing depressed mood in addition to patient's reports of thought disorganization and derealization. Pt to receive 2.5mg today, with plan to titrate to 5mg tomorrow morning if patient tolerates initial dose. Pt states she had been on the medication in the past, but not past 1mg a day according to her reports. - Continue paroxetine 30mg daily - Will order fasting lipid and glucose level in accordance with initiation of an atypical antipsychotic. - Pt tolerated family meeting with mother yesterday afternoon. Both mother and patient agree additional time in the hospital would be beneficial for the patient. Pt did rescind her 72-hour notice today and is agreeable with remaining in treatment until her symptoms and risk factors have been adequately addressed. - Pt continues to report episodes of suicidality, unable to contract for safety if discharged at this time. 07/01 - Continue 30mg of paroxetine. Pt received 5mg of aripiprazole this morning - she is agreeable with monitoring thoughts and mood throughout the day, but is not convinced she wishes to continue the medication. Pharmacoeducation was offered to the patient and topics of therapeutic dosing, time to efficacy, and allowing for a decent trial of the medication prior to making adjustments. We did, however, also review alternatives to the aripiprazole. Specifically, paliperidone was reviewed as a potential option, though patient was encouraged to strongly consider a decent trial of aripiprazole. - We did come to a compromise that aripiprazole dose for tomorrow morning would be held - pending further conversation regarding decision to continue aripiprazole versus trail another agent. - Fasting labs reviewed: fasting glucose - 96; triglycerides - 76; total cholesterol - 167; LDL - 106; HDL - 46 - Pt denies active SI on the unit, but is unable to contract for safety outside of the hospital setting at this time. 07/02--increase Abilify to 10 mg daily to further trial. Seems to have signficant borderline traits per chart review/emerging hx/presentation. (2) Anxiety: 06/28 -increased paroxetine as above; continue lorazepam as needed. 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 Pt initially submitted a 72-hour notice related to concern that her hospitalization would interfere with attending her now boyfriend's services - she rescinded her notice on 07/01/2019 after reporting increased motivation to focus on her mental health. Reviewed. Chief Complaint "So I'm very sure even 20 of Abilify won't be enough and my outpatient doctor won't make it 30 mg so are you going to switch me to something stronger". Review of Systems Sleep Information Total Hours of Sleep: 6 Sleep Comments: pt given vistaril per rn. pt on q-15 minute checks Meal Information Percent Meal Consumed - Breakfast: 50 Percent Meal Consumed - Lunch: 60 Percent Meal Consumed - Dinner: 0 Nutrition Comment: pt. resting Subjective Subjective Patient was seen & assessed and interval progress reviewed with nursing and social work. Mother did confirm boyfriend's passing, initially some concern that patient tends to exagerate per previous therapist. Today is her birthday and she didn't mention it. Now retracting on comments re: two personalities, describes feeling "not right, like the world is 3D and I see 2 D" or believing that seems dont' seem real. Does not endorse depersonalization or dissociation. Physical Exam Psychiatric Orientation: alert Apperance: appropriately groomed Eye Contact: + fair eye contact Motor Behavior: no abnormal motor movements Speech: normal rate/rhythm/volume of speech Affect: + anxious affect Mood: + anxious mood Thought Process: + perseveration Thought Content: + derealization Suicidal Thoughts: denies suicidal thoughts (at this time, unable to contract for saftey outside of the hospital) Homicidal Thoughts: denies homicidal thoughts Hallucinations: no auditory hallucinations and no visual hallucinations Cognition: attention grossly intact and language grossly intact Estimated Intelligence: consistent with education level Insight: + limited insight Judgement: + limited judgement Vital Signs (Past 24 Hours) Last Vital Signs Temp 36.7 C 07/03/19 06:47 Pulse 77 07/03/19 06:48 Resp 16 07/03/19 06:47 BP 109/73 05/02/20 06:48 Pulse Ox 99 06/29/19 01:16 Results & Data ([facility]) Current Inpatient Medications Current Inpatient Medications: Current Inpatient Medications Acetaminophen (Tylenol) 650 mg PO Q4H PRN PRN Reason: Headache or Minor Fever Stop: 07/29/19 00:52 Al Hydrox/Mg Hydrox/Simethicone (Maalox) 30 ml PO Q4H PRN PRN Reason: GI Upset Stop: 07/29/19 00:52 [facility]) [facility] Stop: 08/01/19 08:59 Last Admin: 07/02/19 08:59 Dose: 5 mg Documented by: Bismuth Subsalicylate (Kaopectate) 15 ml PO PRN PRN PRN Reason: Loose Stool Stop: 07/29/19 00:52 Calcium Carbonate (Tums) 1,000 mg PO Q6H PRN PRN Reason: Indigestion Stop: 08/01/19 09:58 Last Admin: 07/02/19 10:25 Dose: 1,000 mg Documented by: Hydroxyzine HCl (Vistaril) 50 mg PO HSZ PRN PRN Reason: Insomnia Stop: 07/29/19 00:52 Last Admin: 07/01/19 21:15 Dose: 50 mg Documented by: Hydroxyzine HCl (Vistaril) 25 mg PO Q4H PRN PRN Reason: Anxiety Stop: 07/29/19 00:52 Last Admin: 06/29/19 06:20 Dose: 25 mg Documented by: Lorazepam (Ativan) 1 mg PO TID PRN PRN Reason: Anxiety Stop: 07/29/19 12:19 Last Admin: 07/02/19 20:29 Dose: 1 mg Documented by: Magnesium Hydroxide (Milk Of Magnesia) 30 ml PO DAILY PRN PRN Reason: Constipation Stop: 07/29/19 00:52 Miscellaneous (Remove Nicoderm Patch) 1 ea N/A DAILY@0859 [facility] Stop: 07/30/19 08:58 Last Admin: 07/03/19 08:48 Dose: Not Given Documented by: Nicotine (Nicoderm Cq) 21 [facility] Stop: 07/29/19 12:29 Last Admin: 07/03/19 08:48 Dose: 21 mg Documented by: Nicotine Polacrilex (Nicorette 2mg) 1 piece MT PRN PRN PRN Reason: cravings Stop: 07/29/19 12:24 Paroxetine HCl (Paroxetine Hcl) 30 mg PO DAILY [facility] Stop: 07/29/19 12:44 Last Admin: 07/03/19 08:48 Dose: 30 mg Documented by: Sodium Chloride ([place] Nasal) 1 - 2 sprays NA PRN PRN PRN Reason: Nasal Dryness/Congestion Stop: 07/29/19 00:52 Mental Health & Subst Abuse Tx Psychiatrist Name of Psychiatrist: Clarkson - Dr. [facility] Psychiatrist's Date of Appointment with Psychiatrist: 07/08/19 Time of Appointment with Psychiatrist: 2:30 p.m. Psychiatric Appointment Comment: By telephone Therapist Name of Therapist: Blue Dog Bryan - Ariv[place] Stewart Therapist's Date of Therapist Appointment: 07/05/19 Time of Therapist Appointment: 6:00pm Therapy Appointment Comment: 9 [facility] [place], Room #3, [facility] Electric Screw Driver Operator Name of Electric Screw Driver Operator: None Post Discharge Appointments Contact Information Discharge Discharge Address: [address] [place] [address]
[2019-07-03] MEDS ORDERED: ARIPIprazole SOLN 10 MG/10 ML UDP PO SCH (14:15)
[2019-07-03] MEDS ORDERED: ARIPiprazole 10 MG TAB PO SCH (14:30)
[2019-07-04] MEDS: LORazepam 1 MG TAB PO PRN ×3 (00:07→16:38)
[2019-07-04] MEDS: PARoxetine HCL 10 MG TAB PO SCH (08:17)
[2019-07-04] MEDS: NICOTINE 21 MG/24 HR TDSY TD SCH (08:18)
[2019-07-04] MEDS ORDERED: ARIPiprazole 10 MG TAB PO SCH (09:00)
[2019-07-04] MEDS ORDERED: ARIPiprazole 5 MG TAB PO ONE (09:44)
--- NOTE | 2019-07-04 10:04 | Psychiatric Progress Note ---
Date of Service July 04, 2019 Impression / Recommendations Impression 28-year-old single female with a history of depression and anxiety who presented with her aunt and uncle requesting inpatient treatment for worsening symptoms and suicidal ideation with thoughts to overdose or use a gun to end her life. She agreed to voluntary treatment, but states that shortly afterwards, she received a phone call informing her that her boyfriend in [place] of a heart attack/MVA. Inpatient treatment is medically necessary due to the severity of symptoms and risk for suicide if discharged. Reviewed. Poor sleep last hs. (1) Depression: 06/28 -patient reports worsening mood for the past couple of weeks in the context of working long hours and interpersonal stressors. She is recently been switched back to paroxetine, which was previously effective, and agreed to titrate the dose to 30 mg daily. -Get collateral information from family, and schedule a discharge planning meeting with her mother and/or aunt. -Clarify access to guns with family. -Coordinate care with [facility], ensure psychiatric follow-up, and recommend individual psychotherapy. -Encourage patient to attend to participate in groups and therapy, work on he althy coping skills and discharge safety plan. 06/29 -continue paroxetine 30 mg daily. -Obtain collateral information from family and previous therapist. -Patient denies access to guns. It would be helpful to involve her family and discharge and safety planning. -Patient is submitted a 72-hour notice requesting to withdrawal from treatment, but cannot safely discharge her as she remains suicidal and none of her risk factors have been mitigated -Broad differential, including depression and anxiety, schizoaffective disorder, borderline personality disorder, PTSD, substance abuse. Patient states she has been having debilitating symptoms for 4 years, we do not have access to any of her previous records, hospitalizations, or medical work-ups. Advised her that there will not be a quick fix in terms of a medication that will fix her symptoms immediately, and that she should continue to work with an outpatient psychiatrist and therapist for the best long-term results. 06/30 - Pt agreeable with trial of aripiprazole to target ongoing depressed mood in addition to patient's reports of thought disorganization and derealization. Pt to receive 2.5mg today, with plan to titrate to 5mg tomorrow morning if patient tolerates initial dose. Pt states she had been on the medication in the past, but not past 1mg a day according to her reports. - Continue paroxetine 30mg daily - Will order fasting lipid and glucose level in accordance with initiation of an atypical antipsychotic. - Pt tolerated family meeting with mother yesterday afternoon. Both mother and patient agree additional time in the hospital would be beneficial for the patient. Pt did rescind her 72-hour notice today and is agreeable with remaining in treatment until her symptoms and risk factors have been adequately addressed. - Pt continues to report episodes of suicidality, unable to contract for safety if discharged at this time. 07/01 - Continue 30mg of paroxetine. Pt received 5mg of aripiprazole this morning - she is agreeable with monitoring thoughts and mood throughout the day, but is not convinced she wishes to continue the medication. Pharmacoeducation was offered to the patient and topics of therapeutic dosing, time to efficacy, and allowing for a decent trial of the medication prior to making adjustments. We did, however, also review alternatives to the aripiprazole. Specifically, paliperidone was reviewed as a potential option, though patient was encouraged to strongly consider a decent trial of aripiprazole. - We did come to a compromise that aripiprazole dose for tomorrow morning would be held - pending further conversation regarding decision to continue aripiprazole versus trail another agent. - Fasting labs reviewed: fasting glucose - 96; triglycerides - 76; total cholesterol - 167; LDL - 106; HDL - 46 - Pt denies active SI on the unit, but is unable to contract for safety outside of the hospital setting at this time. 07/02--increase Abilify to 10 mg daily to further trial. Seems to have signficant borderline traits per chart review/emerging hx/presentation. 07/03--After discussion re: Invega vs continuing trial, agreed to take 7.5 mg this am Abilify and monitor. (2) Anxiety: 06/28 -increased paroxetine as above; continue lorazepam as needed. 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 Pt initially submitted a 72-hour notice related to concern that her hospitalization would interfere with attending her now boyfriend's services - she rescinded her notice on 07/01/2019 after reporting increased motivation to focus on her mental health. Reviewed. Chief Complaint "I didn't sleep a wink, my mind was racing, almost like trying to put itself back together". Review of Systems Sleep Information Total Hours of Sleep: 7.5 Sleep Comments: ativan at 0007 for anxiety. Meal Information Percent Meal Consumed - Breakfast: 75 Percent Meal Consumed - Lunch: 60 Percent Meal Consumed - Dinner: 0 Nutrition Comment: pt. resting Subjective Subjective Patient was seen & assessed and interval progress reviewed with nursing and social work. Slept 4 hrs, did get Abilify early afternoon rather than am as she wanted a second opinion re: the trial. Received prn Ativan around midnight and then again this am. She states the thoughts were non-specific and can't elaborate on them. There was no accompanying psychomotor restlessness that appears like activation from Abilify. She continues to express SI with plan to shoot self and sw still working to confirm access. She related that previously took Risperdal for anger, no meaningful response. 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 Physical Exam Psychiatric Orientation: alert Apperance: + disheveled Eye Contact: + fair eye contact Motor Behavior: no abnormal motor movements Speech: normal rate/rhythm/volume of speech Affect: + depressed affect Mood: + anxious mood Thought Process: linear/logical thought process Thought Content: reality based without delusions Suicidal Thoughts: denies suicidal thoughts Homicidal Thoughts: denies homicidal thoughts Hallucinations: no auditory hallucinations and no visual hallucinations Cognition: language grossly intact Insight: + limited insight Judgement: + limited judgement Vital Signs (Past 24 Hours) Last Vital Signs Temp 36.9 C 07/04/19 06:47 Pulse 80 07/04/19 06:48 Resp 16 07/04/19 06:47 BP 116/75 07/04/19 06:48 Pulse Ox 99 06/29/19 01:16 Results & Data (RUST) Current Inpatient Medications Current Inpatient Medications: Current Inpatient Medications Acetaminophen (Tylenol) 650 mg PO Q4H PRN PRN Reason: Headache or Minor Fever Stop: 07/29/19 00:52 Al Hydrox/Mg Hydrox/Simethicone (Maalox) 30 ml PO Q4H PRN PRN Reason: GI Upset Stop: 07/29/19 00:52 Bismuth Subsalicylate (Kaopectate) 15 ml PO PRN PRN PRN Reason: Loose Stool Stop: 07/29/19 00:52 Calcium Carbonate (Tums) 1,000 mg PO Q6H PRN PRN Reason: Indigestion Stop: 08/01/19 09:58 Last Admin: 07/02/19 10:25 Dose: 1,000 mg Documented by: Hydroxyzine HCl (Vistaril) 50 mg PO HSZ PRN PRN Reason: Insomnia Stop: 07/29/19 00:52 Last Admin: 07/01/19 21:15 Dose: 50 mg Documented by: Hydroxyzine HCl (Vistaril) 25 mg PO Q4H PRN PRN Reason: Anxiety Stop: 07/29/19 00:52 Last Admin: 06/29/19 06:20 Dose: 25 mg Documented by: Lorazepam (Ativan) 1 mg PO TID PRN PRN Reason: Anxiety Stop: 07/29/19 12:19 Last Admin: 07/04/19 08:16 Dose: 1 mg Documented by: Magnesium Hydroxide (Milk Of Magnesia) 30 ml PO DAILY PRN PRN Reason: Constipation Stop: 07/29/19 00:52 Miscellaneous (Remove Nicoderm Patch) 1 ea N/A DAILY@0859 [facility] Stop: 07/30/19 08:58 Last Admin: 07/04/19 08:15 Dose: 1 ea Documented by: Nicotine (Nicoderm Cq) 21 mg TD QAM [facility] Stop: 07/29/19 12:29 Last Admin: 07/04/19 08:18 Dose: 21 mg Documented by: Nicotine Polacrilex (Nicorette 2mg) 1 piece MT PRN PRN PRN Reason: cravings Stop: 07/29/19 12:24 Paroxetine HCl (Paroxetine Hcl) 30 mg PO DAILY CASSIE Stop: 07/29/19 12:44 Last Admin: 07/04/19 08:17 Dose: 30 mg Documented by: Sodium Chloride (Henry Nasal) 1 - 2 sprays NA PRN PRN PRN Reason: Nasal Dryness/Congestion Stop: 07/29/19 00:52 Mental Health & Subst Abuse Tx Psychiatrist Name of Psychiatrist: [place] - Dr. Lake Psychiatrist's Date of Appointment with Psychiatrist: 07/08/19 Time of Appointment with Psychiatrist: 2:30 p.m. Psychiatric Appointment Comment: By telephone Therapist Name of Therapist: Silvio [facility] - Arvin Stewart Therapist's Date of Therapist Appointment: 07/05/19 Time of Therapist Appointment: 6:00pm Therapy Appointment Comment: 9 [facility], Room #3, [facility] Menagerie Superintendent Name of Menagerie Superintendent: None Post Discharge Appointments Contact Information Discharge Discharge Address: [address] [place] [address]
[2019-07-05] MEDS: LORazepam 1 MG TAB PO PRN (08:55)
[2019-07-05] MEDS: PARoxetine HCL 10 MG TAB PO SCH (08:55)
[2019-07-05] MEDS: NICOTINE 21 MG/24 HR TDSY TD SCH (08:56)
[2019-07-05] MEDS ORDERED: ARIPiprazole 5 MG TAB PO ONE (10:07)
[2019-07-05] MEDS ORDERED: haloperidoL 1 MG TAB PO PRN (10:09)
[2019-07-05] MEDS ORDERED: BENZTROPINE MESYLATE 0.5 MG TAB PO PRN (10:10)
--- NOTE | 2019-07-05 10:20 | Psychiatric Progress Note ---
Date of Service July 05, 2019 Impression / Recommendations Impression 28-year-old single female with a history of depression and anxiety who presented with her aunt and uncle requesting inpatient treatment for worsening symptoms and suicidal ideation with thoughts to overdose or use a gun to end her life. She agreed to voluntary treatment, but states that shortly afterwards, she received a phone call informing her that her boyfriend in [place] of a heart attack/MVA. Inpatient treatment is medically necessary due to the severity of symptoms and risk for suicide if discharged. Re-reviewed. Differential continues to include double depression, bipolar II disorder, and borderline personality disorder. Main compliants are of derealization/depersonalization without evidence of dissociation here. Repeatedly requests med changes, offered med washout which she declines. (1) Depression: 06/28 -patient reports worsening mood for the past couple of weeks in the context of working long hours and interpersonal stressors. She is recently been switched back to paroxetine, which was previously effective, and agreed to titrate the dose to 30 mg daily. -Get collateral information from family, and schedule a discharge planning meeting with her mother and/or aunt. -Clarify access to guns with family. -Coordinate care with [facility], ensure psychiatric follow-up, and recommend individual psychotherapy. -Encourage patient to attend to participate in groups and therapy, work on healthy coping skills and discharge safety plan. 06/29 -continue paroxetine 30 mg daily. -Obtain collateral information from family and previous therapist. -Patient denies access to guns. It would be helpful to involve her family and discharge and safety planning. -Patient is submitted a 72-hour notice requesting to withdrawal from treatment, but cannot safely discharge her as she remains suicidal and none of her risk factors have been mitigated -Broad differential, including depression and anxiety, schizoaffective disorder, borderline personality disorder, PTSD, substance abuse. Patient states she has been having debilitating symptoms for 4 years, we do not have access to any of her previous records, hospitalizations, or medical work-ups. Advised her that there will not be a quick fix in terms of a medication that will fix her symptoms immediately, and that she should continue to work with an outpatient psychiatrist and therapist for the best long-term results. 06/30 - Pt agreeable with trial of aripiprazole to target ongoing depressed mood in addition to patient's reports of thought disorganization and derealization. Pt to receive 2.5mg today, with plan to titrate to 5mg tomorrow morning if patient tolerates initial dose. Pt states she had been on the medication in the past, but not past 1mg a day according to her reports. - Continue paroxetine 30mg daily - Will order fasting lipid and glucose level in accordance with initiation of an atypical antipsychotic. - Pt tolerated family meeting with mother yesterday afternoon. Both mother and patient agree additional time in the hospital would be beneficial for the patient. Pt did rescind her 72-hour notice today and is agreeable with remaining in treatment until her symptoms and risk factors have been adequately addressed. - Pt continues to report episodes of suicidality, unable to contract for safety if discharged at this time. 07/01 - Continue 30mg of paroxetine. Pt received 5mg of aripiprazole this morning - she is agreeable with monitoring thoughts and mood throughout the day, but is not convinced she wishes to continue the medication. Pharmacoeducation was offered to the patient and topics of therapeutic dosing, time to efficacy, and allowing for a decent trial of the medication prior to making adjustments. We did, however, also review alternatives to the aripiprazole. Specifically, paliperidone was reviewed as a potential option, though patient was encouraged to strongly consider a decent trial of aripiprazole. - We did come to a compromise that aripiprazole dose for tomorrow morning would be held - pending further conversation regarding decision to continue aripiprazole versus trail another agent. - Fasting labs reviewed: fasting glucose - 96; triglycerides - 76; total cholesterol - 167; LDL - 106; HDL - 46 - Pt denies active SI on the unit, but is unable to contract for safety outside of the hospital setting at this time. 07/02--increase Abilify to 10 mg daily to further trial. Seems to have signficant borderline traits per chart review/emerging hx/presentation. 07/03--After discussion re: Invega vs continuing trial, agreed to take 7.5 mg this am Abilify and monitor. 07/04 --increase Abilify to 10 mg tomorrow. (2) Anxiety: 06/28 -increased paroxetine as above; continue lorazepam as needed. 06/30 - continue paroxetine 30mg as above; lorazepam 1mg TID prn per home dose - reviewed availability of hydroxyzine for daytime anxiety as well as sleep 07/04 --discussed d/c of prn Ativan due to depersonalization symptoms and offered 2 mg H[address] prn in place as titrating Abilify to address primary condition. Reviewed that benzos may worsen symptoms of depersonalization. 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 Chief Complaint "I feel like I'm getting a little better but it's sort of like my head is split open, can't get to certain thoughts". Review of Systems Sleep Information Total Hours of Sleep: 9.25 Sleep Comments: pt appeared to sleep 2.25 hrs during evening shift. pt on q-15 minute checks Meal Information Percent Meal Consumed - Breakfast: 75 Percent Meal Consumed - Lunch: 100 Percent Meal Consumed - Dinner: 0 Nutrition Comment: pt. resting Subjective Subjective Patient was seen & assessed and interval progress reviewed with treatment team. Secludes self in room much of time. Did sleep last night. Continues to ask alot of questions about meds over anxiety that "I'll get stuck like this" or "not strong enough", says it's been 4 years of "flatline" and wonders if she may be bipolar. Reassured that her med plan is appropriate for recurrent depression, bipolar or borderline personality disorder. Seemingly no other psychotic symptoms that go along with her thought blocking/racing thoughts. Again difficult as she is not able to verbalize these thoughts and chief complaint changes. Hasn't needed Ativan consistently here so not clear if adds to her complaints of dissociative symptoms. States that her mood is "up or crashes" but she's not able to elaborate. Reviewed other conditions of personality can impact affect regulation and best diagnosis be refined in outpatient setting over time in working in conjunction with therapist and psychatrist. Reviewed need for realistic expectations at discharge in that 4 years of non-specific symptoms unlikely to totally resolve. She again asked for "best medicine" and reiterated that I would continue with Abilify titration as showing promise/appropriate. Physical Exam Psychiatric Orientation: alert and oriented x 3 Apperance: appropriately groomed Eye Contact: + fair eye contact Speech: normal rate/rhythm/volume of speech Affect: + depressed affect Mood: + depressed mood Thought Process: + perseveration Thought Content: reality based without delusions Suicidal Thoughts: denies suicidal thoughts in hospital, unable to contract for safety outside of the hospital Homicidal Thoughts: denies homicidal thoughts Hallucinations: no auditory hallucinations and no visual hallucinations Cognition: recent memory grossly intact Estimated Intelligence: consistent with education level Insight: + limited insight Judgement: + limited judgement Vital Signs (Past 24 Hours) Last Vital Signs Temp 36.9 C 07/05/19 06:48 Pulse 83 07/05/19 06:48 Resp 18 07/05/19 06:48 BP 110/73 07/05/19 06:48 Pulse Ox 99 06/29/19 01:16 Results & Data (U) Current Inpatient Medications Current Inpatient Medications: Current Inpatient Medications Acetaminophen (Tylenol) 650 mg PO Q4H PRN PRN Reason: Headache or Minor Fever Stop: 07/29/19 00:52 Al Hydrox/Mg Hydrox/Simethicone (Maalox) 30 ml PO Q4H PRN PRN Reason: GI Upset Stop: 07/29/19 00:52 Aripiprazole (Abilify) 10 mg PO QAM [facility]E Stop: 08/05/19 08:59 Bismuth Subsalicylate (Kaopectate) 15 ml PO PRN PRN PRN Reason: Loose Stool Stop: 07/29/19 00:52 Calcium Carbonate (Tums) 1,000 mg PO Q6H PRN PRN Reason: Indigestion Stop: 08/01/19 09:58 Last Admin: 07/02/19 10:25 Dose: 1,000 mg Documented by: Hydroxyzine HCl (Vistaril) 50 mg PO HSZ PRN PRN Reason: Insomnia Stop: 07/29/19 00:52 Last Admin: 07/01/19 21:15 Dose: 50 mg Documented by: Hydroxyzine HCl (Vistaril) 25 mg PO Q4H PRN PRN Reason: Anxiety Stop: 07/29/19 00:52 Last Admin: 06/29/19 06:20 Dose: 25 mg Documented by: Lorazepam (Ativan) 1 mg PO TID PRN PRN Reason: Anxiety Stop: 07/29/19 12:19 Last Admin: 07/05/19 08:55 Dose: 1 mg Documented by: Magnesium Hydroxide (Milk Of Magnesia) 30 ml PO DAILY PRN PRN Reason: Constipation Stop: 07/29/19 00:52 Miscellaneous (Remove Nicoderm Patch) 1 ea N/A DAILY@0859 [facility] Stop: 07/30/19 08:58 Last Admin: 07/05/19 08:56 Dose: 1 ea Documented by: Nicotine (Nicoderm Cq) 21 mg TD QAM [facility]SIE Stop: 07/29/19 12:29 Last Admin: 07/05/19 08:56 Dose: 21 mg Documented by: Nicotine Polacrilex (Nicorette 2mg) 1 piece MT PRN PRN PRN Reason: cravings Stop: 07/29/19 12:24 Paroxetine HCl (Paroxetine Hcl) 30 mg PO DAILY CASSIE Stop: 07/29/19 12:44 Last Admin: 07/05/19 08:55 Dose: 30 mg Documented by: Sodium Chloride ([place] Nasal) 1 - 2 sprays NA PRN PRN PRN Reason: Nasal Dryness/Congestion Stop: 07/29/19 00:52 Mental Health & Subst Abuse Tx Psychiatrist Name of Psychiatrist: Zoran Navarro Dr. Lake Psychiatrist's Date of Appointment with Psychiatrist: 07/08/19 Time of Appointment with Psychiatrist: 2:30 p.m. Psychiatric Appointment Comment: By telephone Therapist Name of Therapist: [facility] - Arvin Stewart Therapist's Date of Therapist Appointment: 07/05/19 Time of Therapist Appointment: 6:00pm Therapy Appointment Comment: 9 [facility] [place], Room #3, [facility] Tile Layer Name of Tile Layer: None Post Discharge Appointments Contact Information Discharge Discharge Address: [address] [place] [address], [place] [address]
[2019-07-06] MEDS: PARoxetine HCL 10 MG TAB PO SCH (08:26)
[2019-07-06] MEDS: NICOTINE 21 MG/24 HR TDSY TD SCH (08:27)
--- NOTE | 2019-07-06 09:40 | Psychiatric Progress Note ---
Date of Service July 06, 2019 Impression / Recommendations Impression 28-year-old single female with a history of depression and anxiety who presented with her aunt and uncle requesting inpatient treatment for worsening symptoms and suicidal ideation with thoughts to overdose or use a gun to end her life. She agreed to voluntary treatment, but states that shortly afterwards, she received a phone call informing her that her boyfriend in [place] of a heart attack/MVA. Inpatient treatment is medically necessary due to the severity of symptoms and risk for suicide if discharged. Differential continues to include depression, bipolar II disorder, and borderline personality disorder. Main complaints are of derealization/depersonalization without evidence of dissociation here. Repeatedly requests clarification of medication recommendations and was even offered a medication washout, but declined. Pt has been compliant with medications, and it seems that she is reaching a point in her treatment where stressors and risk factors are more likely to be mitigated within an individualized relationship with an outpatient counselor and consistent follow-up visits. Pt is benefitting as to be expected from the treatment she is willing to accept of our unit at this time. Of course, group programming is encouraged, but she has demonstrated little motivation to participate in programs. Pt denied SI today, and was agreeable with plan for discharge tomorrow to allow coordination of care with outpatient providers - psychiatry appointment on 07/07. (1) Depression: 06/28 -patient reports worsening mood for the past couple of weeks in the context of working long hours and interpersonal stressors. She is recently been switched back to paroxetine, which was previously effective, and agreed to titrate the dose to 30 mg daily. -Get collateral information from family, and schedule a discharge planning meeting with her mother and/or aunt. -Clarify access to guns with family. -Coordinate care with [facility], ensure psychiatric follow-up, and recommend individual psychotherapy. -Encourage patient to attend to participate in groups and therapy, work on healthy coping skills and discharge safety plan. 06/29 -continue paroxetine 30 mg daily. -Obtain collateral information from family and previous therapist. -Patient denies access to guns. It would be helpful to involve her family and discharge and safety planning. -Patient is submitted a 72-hour notice requesting to withdrawal from treatment, but cannot safely discharge her as she remains suicidal and none of her risk factors have been mitigated -Broad differential, including depression and anxiety, schizoaffective disorder, borderline personality disorder, PTSD, substance abuse. Patient states she has been having debilitating symptoms for 4 years, we do not have access to any of her previous records, hospitalizations, or medical work-ups. Advised her that there will not be a quick fix in terms of a medication that will fix her symptoms immediately, and that she should continue to work with an outpatient psychiatrist and therapist for the best long-term results. 06/30 - Pt agreeable with trial of aripiprazole to target ongoing depressed mood in addition to patient's reports of thought disorganization and derealization. Pt to receive 2.5mg today, with plan to titrate to 5mg tomorrow morning if patient tolerates initial dose. Pt states she had been on the medication in the past, but not past 1mg a day according to her reports. - Continue paroxetine 30mg daily - Will order fasting lipid and glucose level in accordance with initiation of an atypical antipsychotic. - Pt tolerated family meeting with mother yesterday afternoon. Both mother and patient agree additional time in the hospital would be beneficial for the patient. Pt did rescind her 72-hour notice today and is agreeable with remaining in treatment until her symptoms and risk factors have been adequately addressed. - Pt continues to report episodes of suicidality, unable to contract for safety if discharged at this time. 07/01 - Continue 30mg of paroxetine. Pt received 5mg of aripiprazole this morning - she is agreeable with monitoring thoughts and mood throughout the day, but is not convinced she wishes to continue the medication. Pharmacoeducation was offered to the patient and topics of therapeutic dosing, time to efficacy, and allowing for a decent trial of the medication prior to making adjustments. We did, however, also review alternatives to the aripiprazole. Specifically, paliperidone was reviewed as a potential option, though patient was encouraged to strongly consider a decent trial of aripiprazole. - We did come to a compromise that aripiprazole dose for tomorrow morning would be held - pending further conversation regarding decision to continue aripiprazole versus trail another agent. - Fasting labs reviewed: fasting glucose - 96; triglycerides - 76; total cholesterol - 167; LDL - 106; HDL - 46 - Pt denies active SI on the unit, but is unable to contract for safety outside of the hospital setting at this time. 07/02--increase Abilify to 10 mg daily to further trial. Seems to have significant borderline traits per chart review/emerging hx/presentation. 07/03--After discussion re: Invega vs continuing trial, agreed to take 7.5 mg this am Abilify and monitor. 07/04 --increase Abilify to 10 mg tomorrow. 07/05 - Continue aripiprazole at 10mg daily. Reviewed that patient may require further titration of the medication; however, will maintain current dose at this time and patient was encouraged to monitor for effects - Reviewed anticipated discharge tomorrow, patient encouraged to take advantage of group programming and 1:1 counseling for the duration of her hospitalization - Reviewed that recommended ongoing treatment is for consistent follow-up with her outpatient providers, especially routine therapy visits as patient reports ongoing frustration regarding ability to cope with her disorganized thinking. - Although patient isolates in her room, she is attending to ADLs and eating meals (2) Anxiety: 06/28 -increased paroxetine as above; continue lorazepam as needed. 06/30 - continue paroxetine 30mg as above; lorazepam 1mg TID prn per home dose - reviewed availability of hydroxyzine for daytime anxiety as well as sleep 07/04 --discussed d/c of prn Ativan due to depersonalization symptoms and offered 2 mg H[address] prn in place as titrating Abilify to address primary condition. Reviewed that benzos may worsen symptoms of depersonalization. 07/05--as above, patient requesting trial of haloperidol at some point today Risk Factors Assessment Male: No : Yes Do You Have Access To A Gun?: No Health Problems: No Mental Health Diagnoses: Yes Substance Use Disorders: No Previous Attempt: No Previous Psychiatric Hospitalization: Yes Smoker: Yes Protective Factors Assessment : No Responsible for Young Children: No Employed: Yes ([employer]) Stable Relationships: No Supportive Family: Yes Good Rapport with Provider: No Interval History Identifying Information BARRY CALDERA is a 28-year-old F who currently lives in [place] with her stepfather, has a history of depression and anxiety, and was admitted on 06/28/19 23:53 on a 201 voluntary commitment for suicidal ideation with multiple plans (overdose and shooting herself). Chief Complaint "So...I have a question. If I have a split in my personality, can medication even help?" Review of Systems Notes Constitutional: denied Cardiovascular: denied Respiratory: denied Gastrointestinal: denied Neurological: denied Psychiatric: denies symptoms other than stated above Total of at least 10 systems reviewed, pertinent positives as above and in HPI. Sleep Information Total Hours of Sleep: 5 Sleep Comments: pt on q-15 minute checks Meal Information Percent Meal Consumed - Breakfast: 15 Percent Meal Consumed - Lunch: 100 Percent Meal Consumed - Dinner: 0 Nutrition Comment: pt. resting Subjective Subjective Patient was seen & assessed and interval progress reviewed with nursing and social work. Staff report the patient continues to isolate in her room and refuse group programming. She has continued to engage in conversation regarding medication recommendations and has been compliant with dosing. Pt continues to require frequent explanations of treatment plan. Pt was seen today to assess progress since admission. Pt reports having questions related to her continued belief that her "personality is splitting." Pt inquires if medications would help with this situation. We reviewed the role of both medications and routine therapy in her treatment. This provider highlighted the importance of intentional work with the patient's outpatient providers. Pt states that she did not take her aripiprazole this morning as "I told them I wanted to talk to a provider first." We reviewed target dose of 10mg during this hospitalization, but this provider reiterated that the dose could be titrated further on an outpatient basis. Reviewed recommendation to begin working toward discharge plans, with treatment team belief patient could leave as early as tomorrow to begin her treatment on an outpatient basis. Pt continues to ask repeated questions and requesting to know what medications will help with her symptoms. This provider reminded the patient that we are suggesting an adequate trial of her current medications, and that it is believed the aripiprazole will target several of her symptoms of concern. Pt denies side effects related to medications. She is willing to take her dose of aripiprazole after our discussion today. She also requests haloperidol prn for anxiety - "I'm always anxious", as she was encouraged to try the medication during her hospitalization. Pt denied other needs or concerns at this time. She was encouraged to inform staff of any needs, and was encouraged to take advantage of programming today with likely discharge tomorrow. Pt was agreeable with this plan. Physical Exam Psychiatric Orientation: alert, oriented x 3 and cooperative (superficially, though wavering in her motivation for treatment ) Apperance: appropriately dressed and appropriately groomed Eye Contact: good eye contact Motor Behavior: no abnormal motor movements (observed while laying/sitting in bedding) Speech: normal rate/rhythm/volume of speech Affect: + anxious affect and mood congruent with affect Mood: + anxious mood ("I'm always anxious") Thought Process: goal directed thought process and thought association intact Thought Content: + cognitive distortions and + hopelessness (intermittently ) Suicidal Thoughts: denies suicidal thoughts Homicidal Thoughts: denies homicidal thoughts Insight: + fair insight Judgement: + fair judgement Vital Signs (Past 24 Hours) Last Vital Signs Temp 36.8 C 07/06/19 06:49 Pulse 66 07/06/19 06:50 Resp 18 07/06/19 06:49 BP 101/68 07/06/19 06:50 Pulse Ox 99 06/29/19 01:16 Results & Data ([facility]) Current Inpatient Medications Current Inpatient Medications: Current Inpatient Medications Acetaminophen (Tylenol) 650 mg PO Q4H PRN PRN Reason: Headache or Minor Fever Stop: 07/29/19 00:52 Al Hydrox/Mg Hydrox/Simethicone (Maalox) 30 ml PO Q4H PRN PRN Reason: GI Upset Stop: 07/29/19 00:52 Aripiprazole (Abilify) 10 mg PO QAM CASSIE Stop: 08/05/19 08:59 Benztropine Mesylate (Cogentin) 0.5 mg PO Q6 PRN PRN Reason: Muscle Spasm Stop: 08/04/19 10:09 Bismuth Subsalicylate (Kaopectate) 15 ml PO PRN PRN PRN Reason: Loose Stool Stop: 07/29/19 00:52 Calcium Carbonate (Tums) 1,000 mg PO Q6H PRN PRN Reason: Indigestion Stop: 08/01/19 09:58 Last Admin: 07/02/19 10:25 Dose: 1,000 mg Documented by: Haloperidol (Haldol) 2 mg PO Q6 PRN PRN Reason: Anxiety/Agitation Stop: 08/04/19 10:08 Hydroxyzine HCl (Vistaril) 50 mg PO HSZ PRN PRN Reason: Insomnia Stop: 07/29/19 00:52 Last Admin: 07/01/19 21:15 Dose: 50 mg Documented by: Hydroxyzine HCl (Vistaril) 25 mg PO Q4H PRN PRN Reason: Anxiety Stop: 07/29/19 00:52 Last Admin: 06/29/19 06:20 Dose: 25 mg Documented by: Magnesium Hydroxide (Milk Of Magnesia) 30 ml PO DAILY PRN PRN Reason: Constipation Stop: 07/29/19 00:52 Miscellaneous (Remove Nicoderm Patch) 1 ea N/A DAILY@[id number] [facility] Stop: 07/30/19 08:58 Last Admin: 07/06/19 08:30 Dose: 1 ea Documented by: Nicotine (Nicoderm Cq) 21 mg TD QAM [facility] Stop: 07/29/19 12:29 Last Admin: 07/06/19 08:27 Dose: 21 mg Documented by: Nicotine Polacrilex (Nicorette 2mg) 1 piece MT PRN PRN PRN Reason: cravings Stop: 07/29/19 12:24 Paroxetine HCl (Paroxetine Hcl) 30 mg PO DAILY [facility] Stop: 07/29/19 12:44 Last Admin: 07/06/19 08:26 Dose: 30 mg Documented by: Sodium Chloride ([place] Nasal) 1 - 2 sprays NA PRN PRN PRN Reason: Nasal Dryness/Congestion Stop: 07/29/19 00:52 Mental Health & Subst Abuse Tx Psychiatrist Name of Psychiatrist: [facility] Date of Appointment with Psychiatrist: 07/08/19 Time of Appointment with Psychiatrist: 2:30 p.m. Psychiatric Appointment Comment: By telephone Therapist Name of Therapist: [facility] - Arvin Stewart Therapist's Date of Therapist Appointment: 07/12/19 Time of Therapist Appointment: 6:00pm Therapy Appointment Comment: 9 [facility], Room #3, [facility] Actuarial Intern Name of Actuarial Intern: None Post Discharge Appointments Contact Information Discharge Discharge Address: [address] [place] [id number]
[2019-07-06] MEDS: ARIPiprazole 10 MG TAB PO SCH (10:38)
[2019-07-07] MEDS: ARIPiprazole 10 MG TAB PO SCH (09:14)
[2019-07-07] MEDS: NICOTINE 21 MG/24 HR TDSY TD SCH (09:15)
[2019-07-07] MEDS: PARoxetine HCL 10 MG TAB PO SCH (09:15)
--- NOTE | 2019-07-07 11:14 | Discharge Summary ---
Date of Service July 07, 2019 History of Present Illness Patient presented to the ER last night, 06/28/2019, brought in by her aunt and uncle due to concerns for her mental health. 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 She told them that she had been struggling, with worsening mood, anxiety, and suicidal thoughts, and they brought her to the hospital. She stated "my head has not been working right for the past 4 years," with acute worsening over the past 2 weeks. She reported increasing agitation and "itching nonstop from stress." "I ruminate 23/09 about my head not working." Patient stated "I'm not functioning and I know I'm not." She endorsed suicidal thoughts, stating "I can't take not having my head anymore." She endorsed plans to overdose or use a gun to end her life. She endorsed paranoia, inability to think clearly, constant anxiety, depressed mood, hopelessness, helplessness, and frequent crying spells. She endorsed poor sleep, and feelings of unreality which she described as "it's like reality is folded. The front of me ripped away and the side of me is going. It's like I split and not in my body anymore. This is starting to affect my work." "I feel stuck. My life is like a sliver of me standing up." She had difficulty answering questions, and was unable to complete thoughts at times which caused frustration. She stated she had not been showering, brushing her teeth, or combing her hair, and felt she had no control over her thoughts. 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 She said she used to see a therapist, but the therapist discontinued care. She signed in voluntarily, but before coming up to the unit, said she received a phone call while in the ER that her boyfriend had a heart attack and . She was tearful, wanted to know how long she would be in the hospital, and refused to sign releases for her family her outpatient psychiatrist. She was unable to complete admission assessments and had difficulty completing thoughts. On my assessment, she is tearful and focused on discharge. She answers many of the questions vaguely, or changes the topic to how quickly she can be discharged, stating she does not want to miss her boyfriend's . She states that she had been with her boyfriend for 6 months, met him through truck bench mechanic, and that he lives in [place] and she was hoping to move "out west." She repeatedly asks if she can leave, stating she does not want to miss his , but says that no or service is actually scheduled yet, and she is not sure if or when it will be. She further clarifies that she came to [place] with the expressed purpose of being hospitalized, stating that her aunt and uncle drove her here (they also live in [place], not in [place] as previously reported) as she does not like her local hospitals, stating she has been admitted to them before" all they want to do is give you antipsychotics." It is very difficult to obtain information about her recent symptoms, as she repeatedly returns to her desire to be discharged rapidly due to her boyfriend's . She admits to worsening mood and anxiety, stating she has been "stuck in a rut for a long time." She says that she "just needs to move away and get a fresh start," stating that she has problems with relationships and supports, referencing a male friend who "wanted more." She states she was recently put back on Paxil as she had a previous good response to it, but thinks it has only been partially helpful and would like to increase the dose. She also states she needs to "find the therapist," but says she has not been able to do so. She says she spoke to her mother, who works as a speech pathologist and is currently in [place], and that her mother offered to go with her to [place] if there is a service for her boyfriend. She denies hallucinations, paranoia, manic symptoms, and thoughts of harming others.. When asked about suicidal thoughts, she states "I cannot let being here make me missed the ." She endorses stress due to a poor support system and job stress, stating she works 80 hours a week driving truck for the [employer], and never gets a day off. Physical Exam Psychiatric Orientation: alert, oriented x 3 and cooperative Apperance: appropriately dressed, appropriately groomed and appeared stated age Eye Contact: good eye contact Motor Behavior: steady gait and station and no abnormal motor movements Speech: normal rate/rhythm/volume of speech Affect appears mildly depressed, but reactive and appropriate. "Okay, about the same." Thought Process: goal directed thought process and + perseveration (On wanting to know if medications will alleviate her symptoms, tends to ask the same questions repeatedly.) Thought Content: + cognitive distortions and + hopelessness (At times) Suicidal Thoughts: denies suicidal thoughts Patient reports longstanding, passive suicidal thoughts that occur when she is feeling more down and hopeless, but these have decreased from admission, and she denies plan or intent to harm herself. Homicidal Thoughts: denies homicidal thoughts Hallucinations: no auditory hallucinations and no visual hallucinations Cognition: recent memory grossly intact, attention grossly intact and language grossly intact Insight: + limited insight Judgement: + fair judgement Vital Signs (Past 24 Hours) Last Vital Signs Temp 36.7 C 07/07/19 06:34 Pulse 83 07/07/19 06:34 Resp 18 07/07/19 06:34 BP 109/67 07/07/19 06:34 Pulse Ox 99 06/29/19 01:16 Principal Diagnosis Depression not otherwise specified Borderline personality disorder Rule out PTSD Rule out schizoaffective disorder, depressive type Psychiatric Data Patient was hospitalized for 9 days. Paroxetine was increased to 30 mg daily on admission to target depressive and anxiety symptoms, and aripiprazole was added later for augmentation, and titrated to 10 mg daily. Lorazepam was discontinued due to risk of worsening depersonalization/derealization. 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 She was unwilling to see the patient again due to these concerns, that she was referred to a different therapist. The patient was initially focused on rapid discharge, stating she found out her boyfriend in [place] had the day she was hospitalized, and wanted to be discharged so that she could attend services. She submitted a 72-hour notice, but was eventually able to clarify that no services were being held immediately due to the pandemic, so rescinded the noti ce and willingly stayed for treatment. She initially indicated she wanted to have a family meeting with her aunt, who lives near her in [place] and had brought her to the ER for admission, but later changed her mind and said she did not want her aunt involved, but agreed to a family meeting with her mother, who lives and works out of state in [place], while the patient lives with her stepfather in [place]. During the family meeting, her mother clarified that she is unable to leave [place] due to the COVID pandemic, and she expressed concern that the patient had limited supports. They talked about her boyfriend's , which was unexpected as he from a medical condition while driving and then crashed his truck, and the patient had been considering moving to [place] to be with him. 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 She maintained that stance throughout her hospitalization, and although she did attend some groups, she spent much of her time alone in her room. She did have one-to-one sessions with the counselors, and was eating and sleeping well. She often asked the same questions about her medications, expecting them to work immediately, and asking about dose or medication type changes prematurely. She reported that her thoughts were clear and she felt more present overall, and reported improvement in suicidal thoughts. Day of Discharge Assessment Staff report the patient appeared to brighten after interactions with peers yesterday, attended some groups and participated appropriately, and denied suicidal thoughts. On my assessment, she reports that mood is "okay," rates it as 6/10, and denies suicidal thoughts. She states she has chronic thoughts that she might be better off that occur when she is feeling hopeless, stating that she "feels like some things are not fixable." She denies any plan or intent to harm herself, and is able to review her discharge safety plan. She states she was hoping that medications would work immediately and alleviate her symptoms, but understands that it will take some time to see the full effect. She states willingness to follow-up with outpatient treatment as scheduled, and reports good support from her mother and aunt. Her aunt will be picking her up today to take her back to [place]. She denies side effects to medications. Transition of Care Transition Of Care Record: was reviewed with the patient Advance Directives Advance Directives Information Provided: Yes Advance Directives: No Mental Health Advance Directive: No Advance Directives on File: No Living Will: No Power of Director Of Knowledge Management: No Advance Directives Reason:: Declines as Mental Health Visit. Risk Factors Assessment Risk factors were mitigated by admission to the inpatient unit, use of medications to target mood and anxiety symptoms, discussion of the differential diagnosis and the recommended treatment, referring her for outpatient therapy, involving her mother and a family meeting, attending groups and therapy, working on healthy coping skills and a discharge safety plan. She has demonstrated improvement in mood and thinking, and is denying suicidal thoughts. She has not been violent or aggressive here, and has not engaged in self-injurious behavior. She is eating and sleeping well, and performing ADLs independently. She is no longer at acute risk of harm to herself, so can be managed as an outpatient at this time. 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 Lake) Total Time Total Time Spent: Greater Than 30 Minutes Total Time Includes: Examination of the patient, Discharge Planning and Medication Reconciliation Discharge Data Lab Results 06/28/19 06/28/19 06/28/19 21:05 21:05 21:05 WBC RBC Hgb Hct MCV MCH MCHC RDW Std Deviation RDW Coeff of Shawn Plt Count MPV Immature Gran % (Auto) Neut % (Auto) Lymph % (Auto) [place] % (Auto) Eos % (Auto) Baso % (Auto) Immature Gran # (Auto) Neut # (Auto) Lymph # (Auto) [place] # (Auto) Eos # (Auto) Baso # (Auto) Sodium Potassium Chloride Carbon Dioxide Anion Gap BUN Creatinine Est Cr Clr Drug Dosing Est GFR ( Amer) Est GFR (Non-Af Amer) BUN/Creatinine Ratio Glucose Fasting Glucose Calcium Total Bilirubin AST ALT Alkaline Phosphatase Total Protein Albumin Globulin Albumin/Globulin Ratio Triglycerides Cholesterol LDL Cholesterol, Calc VLDL Cholesterol, Calc HDL Cholesterol Cholesterol/HDL Ratio TSH Urine Color Yellow Urine Appearance Clear Urine pH 5.5 Ur Specific [place] 1.023 Urine Protein Negative Urine Glucose (UA) Negative Urine Ketones Trace H Urine Blood Trace H Urine Nitrite Negative Urine Bilirubin Negative Urine Urobilinogen Negative Ur Leukocyte Esterase Negative Urine WBC (Auto) 10-30 H Urine RBC (Auto) 0-4 U Hyaline Cast (Auto) 5-10 H U Epithel Cells (Auto) >30 H Urine Bacteria (Auto) 2+ H POC Ur Test NEG Salicylates Urine Opiates Screen Neg Ur Methadone, Qual Neg Acetaminophen Urine Barbiturates Neg Ur Phencyclidine (PCP) Neg U Amphetamin/Meth Scrn Neg MDMA (Ecstasy) Screen Neg U Benzodiazepines Scrn Neg Ur Cocaine Metabolite Neg U Marijuana (THC) Screen Neg Ethyl Alcohol mg/dL 06/28/19 06/28/19 06/28/19 21:54 21:54 21:54 WBC 6.39 RBC 4.24 Hgb 13.0 Hct 39.0 MCV 92.0 MCH 30.7 MCHC 33.3 RDW Std Deviation 43.7 RDW Coeff of Shawn 13.2 Plt Count 257 MPV 10.8 H Immature Gran % (Auto) 0.2 Neut % (Auto) 64.4 Lymph % (Auto) 24.9 [place] % (Auto) 7.7 Eos % (Auto) 2.0 Baso % (Auto) 0.8 Immature Gran # (Auto) 0.01 Neut # (Auto) 4.12 Lymph # (Auto) 1.59 [place] # (Auto) 0.49 Eos # (Auto) 0.13 Baso # (Auto) 0.05 Sodium 142 Potassium 3.8 Chloride 111 H Carbon Dioxide 28 Anion Gap 4.0 BUN 10 Creatinine 0.92 Est Cr Clr Drug Dosing 102.8 Est GFR ( Amer) 97.5 Est GFR (Non-Af Amer) 84.1 BUN/Creatinine Ratio 11.1 Glucose 87 Fasting Glucose Calcium 8.3 L Total Bilirubin 0.2 AST 10 L ALT 14 Alkaline Phosphatase 68 Total Protein 7.0 Albumin 3.3 L Globulin 3.7 Albumin/Globulin Ratio 0.9 Triglycerides Cholesterol LDL Cholesterol, Calc VLDL Cholesterol, Calc HDL Cholesterol Cholesterol/HDL Ratio TSH 2.130 Urine Color Urine Appearance Urine pH Ur Specific [place] Urine Protein Urine Glucose (UA) Urine Ketones Urine Blood Urine Nitrite Urine Bilirubin Urine Urobilinogen Ur Leukocyte Esterase Urine WBC (Auto) Urine RBC (Auto) U Hyaline Cast (Auto) U Epithel Cells (Auto) Urine Bacteria (Auto) POC Ur Test Salicylates < 1.7 L Urine Opiates Screen Ur Methadone, Qual Acetaminophen < 2 L Urine Barbiturates Ur Phencyclidine (PCP) U Amphetamin/Meth Scrn MDMA (Ecstasy) Screen U Benzodiazepines Scrn Ur Cocaine Metabolite U Marijuana (THC) Screen Ethyl Alcohol mg/dL 06/28/19 07/02/19 21:54 07:06 WBC RBC Hgb Hct MCV MCH MCHC RDW Std Deviation RDW Coeff of Shawn Plt Count MPV Immature Gran % (Auto) Neut % (Auto) Lymph % (Auto) [place] % (Auto) Eos % (Auto) Baso % (Auto) Immature Gran # (Auto) Neut # (Auto) Lymph # (Auto) [place] # (Auto) Eos # (Auto) Baso # (Auto) Sodium Potassium Chloride Carbon Dioxide Anion Gap BUN Creatinine Est Cr Clr Drug Dosing Est GFR ( Amer) Est GFR (Non-Af Amer) BUN/Creatinine Ratio Glucose Fasting Glucose 96 Calcium Total Bilirubin AST ALT Alkaline Phosphatase Total Protein Albumin Globulin Albumin/Globulin Ratio Triglycerides 76 Cholesterol 167 LDL Cholesterol, Calc 106 VLDL Cholesterol, Calc 15 HDL Cholesterol 46 Cholesterol/HDL Ratio 4 TSH Urine Color Urine Appearance Urine pH Ur Specific [place] Urine Protein Urine Glucose (UA) Urine Ketones Urine Blood Urine Nitrite Urine Bilirubin Urine Urobilinogen Ur Leukocyte Esterase Urine WBC (Auto) Urine RBC (Auto) U Hyaline Cast (Auto) U Epithel Cells (Auto) Urine Bacteria (Auto) POC Ur Test Salicylates Urine Opiates Screen Ur Methadone, Qual Acetaminophen Urine Barbiturates Ur Phencyclidine (PCP) U Amphetamin/Meth Scrn MDMA (Ecstasy) Screen U Benzodiazepines Scrn Ur Cocaine Metabolite U Marijuana (THC) Screen Ethyl Alcohol mg/dL < 3.0 Hospital Course (1) Depression: 06/28 -patient reports worsening mood for the past couple of weeks in the context of working long hours and interpersonal stressors. She is recently been switched back to paroxetine, which was previously effective, and agreed to titrate the dose to 30 mg daily. -Get collateral information from family, and schedule a discharge planning meeting with her mother and/or aunt. -Clarify access to guns with family. -Coordinate care with [facility], ensure psychiatric follow-up, and recommend individual psychotherapy. -Encourage patient to attend to participate in groups and therapy, work on healthy coping skills and discharge safety plan. 06/29 -continue paroxetine 30 mg daily. -Obtain collateral information from family and previous therapist. -Patient denies access to guns. It would be helpful to involve her family and discharge and safety planning. -Patient is submitted a 72-hour notice requesting to withdrawal from treatment, but cannot safely discharge her as she remains suicidal and none of her risk factors have been mitigated -Broad differential, including depression and anxiety, schizoaffective disorder, borderline personality disorder, PTSD, substance abuse. Patient states she has been having debilitating symptoms for 4 years, we do not have access to any of her previous records, hospitalizations, or medical work-ups. Advised her that there will not be a quick fix in terms of a medication that will fix her symp toms immediately, and that she should continue to work with an outpatient psychiatrist and therapist for the best long-term results. 06/30 - Pt agreeable with trial of aripiprazole to target ongoing depressed mood in addition to patient's reports of thought disorganization and derealization. Pt to receive 2.5mg today, with plan to titrate to 5mg tomorrow morning if patient tolerates initial dose. Pt states she had been on the medication in the past, but not past 1mg a day according to her reports. - Continue paroxetine 30mg daily - Will order fasting lipid and glucose level in accordance with initiation of an atypical antipsychotic. - Pt tolerated family meeting with mother yesterday afternoon. Both mother and patient agree additional time in the hospital would be beneficial for the cathleen ent. Pt did rescind her 72-hour notice today and is agreeable with remaining in treatment until her symptoms and risk factors have been adequately addressed. - Pt continues to report episodes of suicidality, unable to contract for safety if discharged at this time. 07/01 - Continue 30mg of paroxetine. Pt received 5mg of aripiprazole this morning - she is agreeable with monitoring thoughts and mood throughout the day, but is not convinced she wishes to continue the medication. Pharmacoeducation was offered to the patient and topics of therapeutic dosing, time to efficacy, and allowing for a decent trial of the medication prior to making adjustments. We did, however, also review alternatives to the aripiprazole. Specifically, paliperidone was reviewed as a potential option, though patient was encouraged to strongly consider a decent trial of aripiprazole. - We did come to a compromise that aripiprazole dose for tomorrow morning would be held - pending further conversation regarding decision to continue aripiprazole versus trail another agent. - Fasting labs reviewed: fasting glucose - 96; triglycerides - 76; total cholesterol - 167; LDL - 106; HDL - 46 - Pt denies active SI on the unit, but is unable to contract for safety outside of the hospital setting at this time. 07/02--increase Abilify to 10 mg daily to further trial. Seems to have significant borderline traits per chart review/emerging hx/presentation. 07/03--After discussion re: Invega vs continuing trial, agreed to take 7.5 mg this am Abilify and monitor. 07/04 --increase Abilify to 10 mg tomorrow. 07/05 - Continue aripiprazole at 10mg daily. Reviewed that patient may require further titration of the medication; however, will maintain current dose at this time and patient was encouraged to monitor for effects - Reviewed anticipated discharge tomorrow, patient encouraged to take advantage of group programming and 1:1 counseling for the duration of her hospitalization - Reviewed that recommended ongoing treatment is for consistent follow-up with her outpatient providers, especially routine therapy visits as patient reports ongoing frustration regarding ability to cope with her disorganized thinking. - Although patient isolates in her room, she is attending to ADLs and eating meals (2) Anxiety: 06/28 -increased paroxetine as above; continue lorazepam as needed. 06/30 - continue paroxetine 30mg as above; lorazepam 1mg TID prn per home dose - reviewed availability of hydroxyzine for daytime anxiety as well as sleep 07/04 --discussed d/c of prn Ativan due to depersonalization symptoms and offered 2 mg Haldol prn in place as titrating Abilify to address primary condition. Reviewed that benzos may worsen symptoms of depersonalization. 07/05--as above, patient requesting trial of haloperidol at some point today Mental Health & Subst Abuse Tx Psychiatrist Name of Psychiatrist: Zoran Navarro - Dr. Lake Psychiatrist's Date of Appointment with Psychiatrist: 07/08/19 Time of Appointment with Psychiatrist: 2:30 p.m. Psychiatric Appointment Comment: By telephone Psychiatrist Release of Information: Obtained, Reviewed and Signed Therapist Name of Therapist: [facility] - Arvin Stewart Therapist's Date of Therapist Appointment: 07/12/19 Time of Therapist Appointment: 6:00pm Therapy Appointment Comment: [facility], Room #3, [facility] Therapist Release of Information: Obtained, Reviewed and Signed Cardiovascular Disease Specialist Name of Cardiovascular Disease Specialist: None Post Discharge Appointments Smoking Cessation Counseling Tobacco Cessation Medication Prescribed at Discharge: Offered & Prescribed Contact Information Discharge Discharge Address: [address] [place] [address] Discharge Plan Discharge Items Patient Disposition: Home - Self-Care Reason For Visit: MDR Discharge Diagnosis: Depression not otherwise specified Borderline personality disorder Activity: Per Instructions section Non-emergency contact: Psychiatrist and Therapist Call non-emergency contact if: you have any medication questions and your symptoms worsen Follow-up/Referrals: Geovanna Mohan M.D. [Primary Care Provider] - Diet: Regular Addtl Attending Provider Instructions: SPECIAL CARE INSTRUCTIONS: 1. Follow through with your scheduled aftercare appointments. If unable to keep an appointment, please call to reschedule. 2. Take your medication only as prescribed. Medication should not be changed or stopped without the approval of your doctor. In the event of worsening symptoms or concerns about side effects, contact your doctor immediately. 3. Utilize new healthy coping skills, anger management skills, and stress management skills learned during your hospitalization. Journal feelings and process them with a support person. Identify stressors or situations that may result in relapse, deterioration or inappropriate behaviors and develop a plan to deal with those issues. 4. If your coping skills are ineffective and you are in crisis, contact your outpatient providers for direction. If unable to reach your providers, please call the CAN HELP LINE AT or go to the closest Emergency Room. 5. Avoid alcohol and un-prescribed drugs. 6. You have been provided with the Mental Health Advance Directives Pamphlet for your review. AFTERCARE APPOINTMENTS: * Please call your insurance company prior to your scheduled appointment to confirm your aftercare providers are covered. Take your insurance information to your appointments. WHO TO CALL AND WHEN: Medical Emergencies: For questions or emergencies related to your hospital stay, please contact the Inpatient Behavioral Health Unit at [phone]. A injection maintenance technician is on-call 23/09 for the Behavioral Health Unit for em ergencies At any time you feel your situation is an emergency, you may also call 911 immediately. Your Doctors Instructions noted above were prepared by provider Lien Martin MD. Pending Studies at Discharge: No Stand-Alone Forms: My [facility], Smoking Cessation, Suicide Prevention Resources Medications and DC Order Prescriptions: New nicotine (polacrilex) [Nicorelief] 2 mg Gum 2 mg MT PRN PRN (Reason: craving) Qty: 1 RF: 0 paroxetine HCl 10 mg Tablet 30 mg PO DAILY Qty: 30 RF: 0 aripiprazole [Abilify] 10 mg Tablet 10 mg PO QAM Qty: 30 RF: 0 Discontinued paroxetine HCl [Paxil] 20 mg Tablet 20 mg PO DAILY RF: 0 lorazepam [Ativan] 1 mg Tablet 1 mg PO TID PRN (Reason: Anxiety) RF: 0 Discharge Orders: Discharge Order (Routine); Ordered 07/07/19 Ordered By: Lien Martin Admission Data Admit Date/Time: 06/28/19 23:53 Attending Provider: Lien Martin Admit Provider: Kandace Shin Primary Care Provider: Geovanna Mohan V. Other Interventions: PSY Interdisciplinary Discharge Planning Last Done: 07/07/19 10:42 Coding Level of Care Code 40316 D/C day mgmt > 30 min Diagnoses Depression F32.9 Anxiety F41.9
== END 2019-07-07 12:40 | disposition home or self-care (01) | DRG 885 ==
LOC: ED 20:49 → 3S 23:53